=== PATIENT | female | born 1970 | race Caucasian/White ===

== ENCOUNTER 2023-04-06 19:35 | Observation (INO) ==
[2023-04-06] MEDS ORDERED: SODIUM CHLORIDE 0.9% 500 ML IV ONE ×2 (19:58→21:21)
--- NOTE | 2023-04-06 20:00 | Emergency Department Note ---
Impression & Plan Hypertensive emergency, Stroke-like symptoms, Hx of multiple sclerosis ED Provider Note NAME: TED VELASQUEZ AGE: 52 SEX: F ARRIVES VIA: Walk-In INFORMANT: Patient ED PROVIDER(S): Ty Servin MD CHIEF COMPLAINT: Headache, dizziness, elevated blood pressure. History of CVA. PLAN: Disposition: Admit MEDICAL DECISION MAKING: The patient is a pleasant 52-year-old woman with a past medical history of multiple sclerosis and stroke 2 years ago per her report who presents to the emergency department via walk-in accompanied by her for evaluation of ongoing headache that began last night with persistence into this morning with development associated dizziness and imbalance that continued into today with associated elevated blood pressure. The patient denies taking any medications on regular basis including medication for blood pressure or stroke prevention. She reports she was initially diagnosed with a stroke at [facility] and had been on medications for a month or so afterwards but reports she lost insurance and never followed up again. She otherwise reports recent pattern of acute episodes of hot flashes and palpitations over the past several months but had never developed severe headache with them as she has now. She reports that she noticed some slight leg weakness when she was walking into the emergency department today but acknowledges this has happened in the past and had attributed to her multiple sclerosis. Upon presenting to triage she reported lightheadedness and headache associate with her blood pressure being elevated. Upon arriving to her room RN evaluation suspected possible extremity drift. On my evaluation the patient is uncomfortable no acute distress, blood pressure 220/120s and vital signs otherwise stable. She appears clinically dry. She exhibits left lower extremity weakness with slight drift though some inconsistent on examination as there is normal strength against resistance. Giv en the patient's imbalance and dizziness associated with her headache began this morning indicated as she is outside the window however stroke alert was activated for the possibility of large vessel occlusion. I did discuss the case with [facility] telestroke neurology, Dr. Miles, who did evaluate the patient via telestroke terminal. Subsequent, the patient's CT head and CTA of the head neck were negative for acute abnormalities. Appreciate consultation and recommendations. Agrees that TNK not indicated at this time. Further no large vessel occlusion. Agrees that symptoms likely related to hypertensive emergency. Progress is considered however no evidence of this on imaging at this time. Recommends admission for further treatment of blood pressure and MRI imaging to further characterize symptoms. Recommends initiation of daily aspirin and high-dose statin such as 40 mg of atorvastatin. The patient is from [facility] and is visiting [place] with her partner. Thus, plan will be to follow-up with her she stroke clinic upon discharge. EKG without overt acute ischemia. CXR negative for acute cardiopulmonary process. WBC, hemoglobin and platelets within normal limits. Chemistry without metabolic acidosis. Electrolytes and LFTs without significant abnormality. High- sensitivity troponin 6.1, within normal limits. TSH within normal limits. UA without convincing evidence of infection as epithelial cells are present and negative nitrates. Treatment was initiated with IV fluid hydration as well as IV labetalol for blood pressure control. Case was discussed with Dr. Merritt, [place] hospitalist who will evaluate the patient for admission. Triage Nursing notes reviewed and agree them. Prior/outside medical records reviewed Vital Signs: reviewed Differential diagnosis: Infection, dehydration, metabolic abnormality, hypo/hyperglycemia, electrolyte disturbance, anemia, hypoxia, cardiac sources, intracerebral event, toxicologic, neurologic, as well as other pathologies. ER treatment provided: See below. Diagnostics interpreted by me: ECG: Normal sinus rhythm, 90 bpm, no ectopy, no overt ST elevation or depression, QTc 459, QRS 94 Cardiac Monitoring: An order for continuous cardiac monitoring was placed and demonstrated Normal sinus rhythm, 90 bpm, no ectopy. Laboratory studies: See below Imaging studies: See below Consultation(s): Dr. Miles,[facility] telestroke neurology. Dr. Merritt, [facility] hospitalist. HPI: The patient is a pleasant 52-year-old woman with a past medical history of multiple sclerosis and stroke 2 years ago per her report who presents to the emergency department via walk-in accompanied by her for evaluation of ongoing headache that began last night with persistence into this morning with development associated dizziness and imbalance that continued into today with associated elevated blood pressure. The patient denies taking any medications on regular basis including medication for blood pressure or stroke prevention. She reports she was initially diagnosed with a stroke at [facility] and had been on medications for a month or so afterwards but reports she lost insurance and never followed up again. She otherwise reports recent pattern of acute episodes of hot flashes and palpitations over the past several months but had never developed severe headache with them as she has now. She reports that she noticed some slight leg weakness when she was walking into the emergency department today but acknowledges this has happened in the past and had attributed to her multiple sclerosis. Upon presenting to triage she reported lightheadedness and headache associate with her blood pressure being elevated. Upon arriving to her room RN evaluation suspected possible extremity drift. ROS: See above HPI for pertinent positives & negatives. A total of 10 systems reviewed and were otherwise negative. VITALS:See Below PHYSICAL EXAMINATION: GENERAL: Awake, alert, anxious/uncomfortable-appearing, in no distress HENT: Normocephalic, atraumatic. Oropharynx with dry mucous membranes and otherwise unremarkable. EYES: Normal conjunctiva. Sclera non-icteric. NECK: Supple. No nuchal rigidity. FROM. No JVD. RESPIRATORY: Clear to auscultation. CARDIAC: Regular rate, normal rhythm. Extremities warm and well perfused. Pulses equal. ABDOMEN: Soft, non-distended. No tenderness to palpation. No rebound or guarding. No masses. RECTAL: Deferred. MUSCULOSKELETAL: Chest examination reveals no tenderness. The back is symmetrical on inspection without obvious abnormality. There is no CVA tenderness to palpation. No joint edema. LOWER EXTREMITIES: Calves are equal size bilaterally and non-tender. No edema. No discoloration. NEURO: Exhibits left lower extremity weakness with slight drift though some inconsistent on examination as there is normal strength against resistance. Equivocal intermittent aphasia though appears distractible. BUE 5/5 strength. RLE 5/5 strength. Intact finger to nose. SKIN: No rash or jaundice noted. ED COURSE: Critical Care: I have personally spent greater than 35 minutes of critical care time in the direct management of this patient. This includes bedside care, interpretation of diagnostic studies, and testing, discussion with consultants, patient, and family members, and other required patient management activities. This 35 minutes is in excess of all separately billable procedures. Ty Servin MD Past Med/Surg History Medical History CVA (cerebral vascular accident) Hx of multiple sclerosis Social History Smoking Status: Never smoker Hx Alcohol Use: Yes Alcohol type: beer and wine Hx Substance Use: No Preferred Language: Telugu Communication Ability: Effective Insurance Account Executive Required: No Beliefs That Will Affect Care: None Current Living Situation: Spouse Other Information That Helps Us Care for You: No Feels Safe at Home: Yes Safety Concerns: Feels Safe At This Time Allergies Allergies Allergy/AdvReac Type Severity Reaction Status Date / Time ciprofloxacin Allergy Intermediate Rash Verified 04/06/23 22:15 Home Meds Home Medications Medication Instructions Recorded Confirmed acetaminophen 500 mg tablet 1,000 mg PO DIRECTED PRN Pain 04/06/23 04/06/23 (Tylenol Extra Strength) ibuprofen 200 mg tablet 800 mg PO DIRECTED PRN Pain 04/06/23 04/06/23 Results & Data (ED) Vital Signs Vital Signs - 24 hr 04/06/23 19:35 04/06/23 19:59 04/06/23 20:37 Temperature 36.9 C Temperature Source Temporal Artery Scan Pulse Rate 89 87 91 H Pulse Rate [Apical] Respiratory Rate 16 18 19 Respiratory Effort / Characteristics Non-Labored Spontaneous Respiratory Depth Normal Respiratory Pattern Blood Pressure 226/126 H 196/117 H Blood Pressure [Left Arm] Blood Pressure Mean 159 143 Blood Pressure Mean [Left Arm] Pulse Oximetry 96 97 97 Oxygen Delivery Method Room Air Room Air Room Air Sepsis Recent Fever Within 48 Hours No Sepsis New/Unexplained Change in Mental Status N/A Sepsis Action Taken by Nursing No Action Required 04/06/23 20:45 04/06/23 21:01 04/06/23 21:16 Temperature Temperature Source Pulse Rate 96 H 100 H 92 H Pulse Rate [Apical] Respiratory Rate 22 20 23 Respiratory Effort / Characteristics Respiratory Depth Respiratory Pattern Blood Pressure 191/121 H 216/140 H 193/130 H Blood Pressure [Left Arm] Blood Pressure Mean 144 165 151 Blood Pressure Mean [Left Arm] Pulse Oximetry 97 96 95 Oxygen Delivery Method Room Air Room Air Room Air Sepsis Recent Fever Within 48 Hours Sepsis New/Unexplained Change in Mental Status Sepsis Action Taken by Nursing 04/06/23 21:30 04/06/23 21:45 04/06/23 22:00 Temperature Temperature Source Pulse Rate 89 77 75 Pulse Rate [Apical] Respiratory Rate 13 15 15 Respiratory Effort / Characteristics Respiratory Depth Respiratory Pattern Blood Pressure 169/133 H 148/92 H 148/102 H Blood Pressure [Left Arm] Blood Pressure Mean 145 110 117 Blood Pressure Mean [Left Arm] Pulse Oximetry 95 93 96 Oxygen Delivery Method Room Air Room Air Room Air Sepsis Recent Fever Within 48 Hours Sepsis New/Unexplained Change in Mental Status Sepsis Action Taken by Nursing 04/06/23 20:00 04/06/23 22:22 04/06/23 20:00 Temperature Temperature Source Pulse Rate 85 75 Pulse Rate [Apical] 86 Respiratory Rate 18 Respiratory Effort / Characteristics Non-Labored Respiratory Depth Normal Respiratory Pattern Regular Blood Pressure 148/102 H Blood Pressure [Left Arm] 235/142 H Blood Pressure Mean Blood Pressure Mean [Left Arm] 173 Pulse Oximetry 97 Oxygen Delivery Method Room Air Sepsis Recent Fever Within 48 Hours Sepsis New/Unexplained Change in Mental Status Sepsis Action Taken by Nursing 04/06/23 22:16 Temperature Temperature Source Pulse Rate 74 Pulse Rate [Apical] Respiratory Rate 16 Respiratory Effort / Characteristics Respiratory Depth Respiratory Pattern Blood Pressure 147/95 H Blood Pressure [Left Arm] Blood Pressure Mean 112 Blood Pressure Mean [Left Arm] Pulse Oximetry 96 Oxygen Delivery Method Room Air Sepsis Recent Fever Within 48 Hours Sepsis New/Unexplained Change in Mental Status Sepsis Action Taken by Nursing Laboratory Data Attestation: I reviewed the patient's lab results. 04/06/23 19:45 04/06/23 19:45 Lab Results 04/06/23 04/06/23 04/06/23 Range/Units 19:45 19:45 19:45 WBC 6.73 (4.8-10.8) K/ul RBC 4.09 L (4.20-5.40) M/uL Hgb 12.3 (12.0-16.0) g/dl POC Hgb (12.0-16.0) g/dl Hct 35.6 L (37.0-47.0) % POC Hct (37-47) % MCV 87.0 (80.0-100.0) fL MCH 30.1 (25.0-34.0) pg MCHC 34.6 (32.0-36.0) g/dL RDW Std Deviation 44.4 (36.4-46.3) fL RDW Coeff of Claudia 14.0 (11.5-14.5) % Plt Count 329 (130-400) K/uL MPV 9.5 (9.4-12.4) fL PT 10.3 (9.0-12.0) Seconds INR 0.9 (0.9-1.1) APTT 26.5 (21.0-31.0) Seconds PTT Ratio 0.9 POC Sodium (135-144) mmol/L Sodium 137 (136-145) mmol/L POC Potassium (3.3-5.0) mmol/L Potassium 3.8 (3.5-5.1) mmol/L POC Chloride (101-112) mmol/L Chloride 104 (98-107) mmol/L Carbon Dioxide 25 (21-32) mmol/L POC Total CO2 (24-31) mmol/L Anion Gap 8 (3-11) POC Anion Gap (16-25) mmol/L POC BUN (7-18) mg/dl BUN 18 (6-23) mg/dl Creatinine 0.90 (0.6-1.2) mg/dl POC Creatinine (0.6-1.3) mg/dl Est Cr Clr Drug Dosing 75.8 ml/min Est GFR ( Amer) 84.6 ml/min Est GFR (Non-Af Amer) 73.0 ml/min BUN/Creatinine Ratio 20.0 (10-20) Glucose 123 H (70-99(Fasting)) mg/dl POC Glucose (other) (70-99) mg/dl Calcium 9.6 (8.6-10.3) mg/dl POC Ioniz Calcium Nidia (1.12-1.32) mmol/l Phosphorus 5.1 H (2.5-4.9) mg/dl Magnesium 1.8 (1.7-2.4) mg/dl Total Bilirubin 0.5 (0.2-1.0) mg/dl AST 12 L (13-39) U/L ALT 14 (7-52) U/L Alkaline Phosphatase 99 (34-104) U/L Troponin I High Sens 6.1 (0-14) pg/ml Total Protein 7.0 (6.0-8.3) gm/dl Albumin 4.5 (3.4-5.0) gm/dl Globulin 2.5 (2.5-4.0) gm/dl Albumin/Globulin Ratio 1.8 (0.9-2) TSH (0.300-4.500) uIu/ml Urine Color Urine Appearance (Clear) Urine pH (4.5-7.5) Ur Specific Girard (1.000-1.030) Urine Protein (Negative) Urine Glucose (UA) (Negative) Urine Ketones (Negative) Urine Blood (Negative) Urine Nitrite (Negative) Urine Bilirubin (Negative) Urine Urobilinogen (Negative) Ur Leukocyte Esterase (Negative) Urine WBC (Auto) (0-5) /hpf Urine RBC (Auto) (0-4) /hpf U Hyaline Cast (Auto) (0-5) /lpf U Epithel Cells (Auto) (0-5) /lpf Urine Bacteria (Auto) (Negative) 04/06/23 04/06/23 04/06/23 Range/Units 19:50 19:54 20:30 WBC (4.8-10.8) K/ul RBC (4.20-5.40) M/uL Hgb (12.0-16.0) g/dl POC Hgb 12.6 (12.0-16.0) g/dl Hct (37.0-47.0) % POC Hct 37 (37-47) % MCV (80.0-100.0) fL MCH (25.0-34.0) pg MCHC (32.0-36.0) g/dL RDW Std Deviation (36.4-46.3) fL RDW Coeff of Claudia (11.5-14.5) % Plt Count (130-400) K/uL MPV (9.4-12.4) fL PT (9.0-12.0) Seconds INR (0.9-1.1) APTT (21.0-31.0) Seconds PTT Ratio POC Sodium 139 (135-144) mmol/L Sodium (136-145) mmol/L POC Potassium 3.8 (3.3-5.0) mmol/L Potassium (3.5-5.1) mmol/L POC Chloride 103 (101-112) mmol/L Chloride (98-107) mmol/L Carbon Dioxide (21-32) mmol/L POC Total CO2 26 (24-31) mmol/L Anion Gap (3-11) POC Anion Gap 15.0 L (16-25) mmol/L POC BUN 17 (7-18) mg/dl BUN (6-23) mg/dl Creatinine (0.6-1.2) mg/dl POC Creatinine 1.0 (0.6-1.3) mg/dl Est Cr Clr Drug Dosing ml/min Est GFR ( Amer) ml/min Est GFR (Non-Af Amer) ml/min BUN/Creatinine Ratio (10-20) Glucose (70-99(Fasting)) mg/dl POC Glucose (other) 125 H (70-99) mg/dl Calcium (8.6-10.3) mg/dl POC Ioniz Calcium Nidia 1.23 (1.12-1.32) mmol/l Phosphorus (2.5-4.9) mg/dl Magnesium (1.7-2.4) mg/dl Total Bilirubin (0.2-1.0) mg/dl AST (13-39) U/L ALT (7-52) U/L Alkaline Phosphatase (34-104) U/L Troponin I High Sens (0-14) pg/ml Total Protein (6.0-8.3) gm/dl Albumin (3.4-5.0) gm/dl Globulin (2.5-4.0) gm/dl Albumin/Globulin Ratio (0.9-2) TSH 2.954 (0.300-4.500) uIu/ml Urine Color Yellow Urine Appearance Clear (Clear) Urine pH 6.0 (4.5-7.5) Ur Specific Girard 1.009 (1.000-1.030) Urine Protein Negative (Negative) Urine Glucose (UA) Negative (Negative) Urine Ketones Negative (Negative) Urine Blood 1+ H (Negative) Urine Nitrite Negative (Negative) Urine Bilirubin Negative (Negative) Urine Urobilinogen Negative (Negative) Ur Leukocyte Esterase 2+ H (Negative) Urine WBC (Auto) 10-30 H (0-5) /hpf Urine RBC (Auto) 0-4 (0-4) /hpf U Hyaline Cast (Auto) 1-5 (0-5) /lpf U Epithel Cells (Auto) >30 H (0-5) /lpf Urine Bacteria (Auto) 1+ H (Negative) Administered Medications Potassium Chloride/Sodium Chloride (Normal Saline W/20 Meq Kcl) 20 meq in 1,000 mls @ 50 mls/hr IV .Q20H ONE; Protocol Stop: 04/07/23 18:13 Last Admin: 04/06/23 22:48 Dose: 50 mls/hr Documented By: HERIBERTO Lorazepam (Lorazepam 0.5 Mg Tab) 0.5 mg PO TID PRN PRN Reason: Anxiety Stop: 05/06/23 22:36 Last Admin: 04/07/23 00:05 Dose: 0.5 mg Documented By: ALEKSANDER Morphine Sulfate (Morphine Sulfate 4 Mg/Ml 1 Ml Carp\Vial) 4 mg IV Q4H PRN PRN Reason: Pain Stop: 04/20/23 22:36 Last Admin: 04/07/23 01:26 Dose: 4 mg Documented By: ALEKSANDER Discontinued Medications Amoxicillin/Clavulanate Potassium (Amoxicillin/Clavulanate 875 Mg Tab) 1 tab PO NOW ONE; Protocol Stop: 04/06/23 22:14 Last Admin: 04/06/23 22:48 Dose: 1 tab Documented By: HERIBERTO Aspirin (Aspirin 81 Mg Ectab) 81 mg PO NOW STA Stop: 04/06/23 22:39 Last Admin: 04/06/23 22:48 Dose: 81 mg Documented By: HERIBERTO Atorvastatin Calcium (Atorvastatin 40 Mg Tab) 40 mg PO NOW STA Stop: 04/06/23 22:39 Last Admin: 04/06/23 23:25 Dose: 40 mg Documented By: HERIBERTO Sodium Chloride (Nss) 500 mls @ 999 mls/hr IV .Q31M ONE Stop: 04/06/23 20:28 Last Infusion: 04/06/23 21:16 Dose: 0 mls/hr Documented By: Admin: 04/06/23 20:05 Dose: 999 mls/hr Documented By: HERIBERTO Sodium Chloride (Nss) 500 mls @ 999 mls/hr IV .Q31M ONE Stop: 04/06/23 21:51 Last Infusion: 04/06/23 22:22 Dose: 0 mls/hr Documented By: Admin: 04/06/23 21:30 Dose: 999 mls/hr Documented By: HERIBERTO Acetaminophen (Ofirmev) 1,000 mg in 100 mls @ 400 mls/hr IV NOW STA Stop: 04/06/23 21:35 Last Infusion: 04/06/23 22:22 Dose: 0 mls/hr Documented By: Admin: 04/06/23 21:29 Dose: 400 mls/hr Documented By: HERIBERTO Nicardipine HCl 25 mg/ Sodium (Chloride) 250 mls @ 50 mls/hr IV .Q5H BRENDA; Protocol Stop: 05/06/23 21:29 Last Admin: 04/07/23 00:10 Dose: Not Given Documented By: ALEKSANDER Magnesium Sulfate/Dextrose (Magnesium Sulfate / D5w) 1 gm in 100 mls @ 50 mls/hr IV Q2H BRENDA Stop: 04/07/23 01:44 Last Admin: 04/07/23 01:15 Dose: 50 mls/hr Documented By: Infusion: 04/07/23 00:48 Dose: 50 mls/hr Documented By: Admin: 04/06/23 22:48 Dose: 50 mls/hr Documented By: HERIBERTO Ioversol (Ioversol 350 Mg 125ml Prefilled Syringe) 114 ml IV ONCE ONE Stop: 04/06/23 20:29 Last Admin: 04/06/23 20:28 Dose: 114 ml Documented By: LIZ Labetalol HCl (Labetalol Hcl Iv 5 Mg/Ml 20ml) 20 mg IV NOW STA Stop: 04/06/23 21:22 Last Admin: 04/06/23 21:30 Dose: 20 mg Documented By: HERIBERTO Co-signed By: JOSE F Lisinopril (Lisinopril 5 Mg Tab) 5 mg PO NOW ONE Stop: 04/06/23 21:36 Last Admin: 04/06/23 22:48 Dose: 5 mg Documented By: HERIBERTO Miscellaneous (Stat Iv Infusion Titration Per Protocol) 1 each N/A NOW STA; Protocol Stop: 04/06/23 21:28 Last Admin: 04/07/23 00:12 Dose: Not Given Documented By: ALEKSANDER Tramadol HCl (Tramadol Hcl 50 Mg Tablet) 25 - 50 mg PO Q4H PRN PRN Reason: Pain Stop: 05/07/23 00:20 Last Admin: 04/07/23 00:32 Dose: 25 mg Documented By: ALEKSANDER Imaging Data Radiologist's Impression: Chest X-Ray 04/06/23 19:40 SINGLE VIEW CHEST CLINICAL HISTORY: Strokelike symptoms. FINDINGS: An AP, portable, upright chest radiograph is obtained. No prior studies are available for comparison at the time of dictation. The cardiomediastinal silhouette is unremarkable. There is mild bibasilar a telectasis. The lungs and pleural spaces are otherwise clear. No pneumothorax is seen. The bony thorax is grossly intact. IMPRESSION: No active disease in the chest. ACT 112: Negative or not required by law. Electronically signed by: Bogdan Ellis M.D. 04/06/2023 10:[address] 04/06/23 19:40 CR Exam(s): CT HEAD Without Contrast EXAM: CT Head Without Intravenous Contrast CLINICAL HISTORY: Reason for exam: stroke symptoms, LLE weakness, HTN. TECHNIQUE: Axial computed tomography images of the head/brain without intravenous contrast. CTDI is 45.65 mGy and DLP is 677.75 mGy-cm. Automated exposure control was utilized for the study. A dose lowering technique was utilized adhering to the principles of ALARA. COMPARISON: None. FINDINGS: Brain: Scattered areas of decreased attenuation within the deep white matter suggestive of mild microangiopathic white matter disease. No hemorrhage. Ventricles: Unremarkable. No ventriculomegaly. Bones/joints: Unremarkable. No acute fracture. Soft tissues: Unremarkable. Sinuses: Unremarkable as visualized. No acute sinusitis. Mastoid air cells: Unremarkable as visualized. No mastoid effusion. IMPRESSION: Chronic changes as described. No acute intracranial hemorrhage or space-occupying lesion. Communications: Call Doctor Stroke Electronically signed by: Marquita Tabor MD 04/06/23 20:53 PM Head CTA 04/06/23 20:23 CR Exam(s): CTA HEAD With Contrast IV Amt: 114 ml optiray 350 EXAM: CT Angiography Head With Intravenous Contrast CLINICAL HISTORY: Reason for exam: stroke symptoms, LLE weakness, HTN. TECHNIQUE: Axial computed tomographic angiography images of the head with intravenous contrast. CTDI is 45.76 mGy and DLP is 677.48 mGy-cm. Automated exposure control was utilized for the study. A dose lowering technique was utilized adhering to the principles of ALARA. MIP reconstructed images were created and reviewed. CONTRAST: Patient received 114 ml optiray 350 of IV contrast COMPARISON: None. FINDINGS: Right internal carotid artery: No acute findings. Intracranial segment is patent with no significant stenosis. No aneurysm. Right anterior cerebral artery: Unremarkable. No occlusion or significant stenosis. No aneurysm. Right middle cerebral artery: Unremarkable. No occlusion or significant stenosis. No aneurysm. Right posterior cerebral artery: Unremarkable. No occlusion or significant stenosis. No aneurysm. Right vertebral artery: Unremarkable as visualized. Left internal carotid artery: No acute findings. Intracranial segment is patent with no significant stenosis. No aneurysm. Left anterior cerebral artery: Unremarkable. No occlusion or significant stenosis. No aneurysm. Left middle cerebral artery: Unremarkable. No occlusion or significant stenosis. No aneurysm. Left posterior cerebral artery: Unremarkable. No occlusion or significant stenosis. No aneurysm. Left vertebral artery: Unremarkable as visualized. Basilar artery: Unremarkable. No occlusion or significant stenosis. No aneurysm. IMPRESSION: Negative CT angiogram of the brain with no focal stenosis, occlusion or aneurysm involving the [place] of [place]. Communications: Call Doctor Stroke Electronically signed by: Marquita Tabor MD 04/06/23 21:16 PM Neck CTA 04/06/23 20:23 CR Exam(s): CTA NECK With Contrast IV Amt: 114 ml optiray 350 EXAM: CT Angiography Neck With Intravenous Contrast CLINICAL HISTORY: Reason for exam: stroke symptoms, LLE weakness, HTN. TECHNIQUE: Routine carotid CT angiography protocol was performed with intravenous contrast. NASCET criteria using the distal ICAs for comparison were used for evaluation of stenoses. CTDI is 11.81 mGy and DLP is 408.05 mGy-cm. Automated exposure control was utilized for the study. A dose lowering technique was utilized adhering to the principles of ALARA. MIP reconstructed images were created and reviewed. CONTRAST: Patient received 114 ml optiray 350 of IV contrast COMPARISON: None. FINDINGS: VASCULATURE: Right common carotid artery: Unremarkable. No occlusion or significant stenosis. No dissection. Right internal carotid artery: Unremarkable. Extracranial segment is patent with no occlusion or significant stenosis. No dissection. Right external carotid artery: Unremarkable. No occlusion. Right vertebral artery: Unremarkable. No occlusion or significant stenosis. No dissection. Left common carotid artery: Unremarkable. No occlusion or significant stenosis. No dissection. Left internal carotid artery: Unremarkable. Extracranial segment is patent with no occlusion or significant stenosis. No dissection. Left external carotid artery: Unremarkable. No occlusion. Left vertebral artery: Unremarkable. No occlusion or significant stenosis. No dissection. NECK: Bones/joints: Unremarkable. Soft tissues: Unremarkable. Lung apices: Clear. Other findings: Nonspecific degenerative disease of the spine. CAROTID STENOSIS REFERENCE USING NASCET CRITERIA: % ICA stenosis = (1 - narrowest ICA diameter/diameter of distal cervical ICA) x 100. Mild - <50% stenosis. Moderate - 50-69% stenosis. Severe - 70-94% stenosis. Near occlusion - 95-99% stenosis. Occluded - 100% stenosis. IMPRESSION: Negative CT angiogram of the neck with no focal stenosis, occlusion or dissection seen. Communications: Call Doctor Stroke Electronically signed by: Marquita Tabor MD 04/06/23 21:14 PM Abdomen/Pelvis CT 04/06/23 22:17 CT SCAN OF THE ABDOMEN AND PELVIS WITHOUT IV CONTRAST CLINICAL HISTORY: Low back pain. COMPARISON STUDY: No priors. TECHNIQUE: CT scan of the abdomen and pelvis is performed from the lung bases to the proximal femora. Images are reviewed in the axial, sagittal, and coronal planes. IV contrast was not administered for this examination. A dose lowering technique was utilized adhering to the principles of ALARA. CT DOSE: 1377.85 mGy.cm FINDINGS: Lung bases: The heart is enlarged and without pericardial effusion. The lung bases are clear noting bibasilar atelectasis. There is a small hiatal hernia. Liver: The unenhanced liver is normal in size, contour, and attenuation. There is no intrahepatic biliary ductal dilatation. Gallbladder: Unremarkable. Spleen: Normal in size and attenuation. Pancreas: Unremarkable. Adrenal glands: Unremarkable. Kidneys: The unenhanced kidneys are normal in size and without hydronephrosis. Excreted IV contrast fills the renal collecting systems and ureters. This degrades assessment for renal calculi. There is no evidence of urothelial lesion within the renal pelvis bilaterally or along the course of the ureters. There is no evidence of contour deforming renal mass lesion. Abdominal vasculature: The abdominal aorta is normal in course and caliber noting scattered foci of atherosclerotic calcification. Bowel: There is mild colonic diverticulosis without CT evidence of acute diverticulitis. No bowel obstruction is seen. Moderate fecal retention is noted throughout the colon. The appendix is well-visualized and normal. Peritoneum: There is no intraperitoneal free air or abdominal ascites. There is a fat-containing umbilical hernia. Lymphadenopathy: None. Pelvic viscera: The bladder is filled with excreted IV contrast and normal in appearance. The uterus and adnexa are normal in appearance Skeletal structures: There is mild lumbosacral spondylosis. No lytic or blastic lesions are seen. IMPRESSION: No acute infectious or inflammatory findings are identified in the abdomen or pelvis. See above. ACT 112: Negative or not required by law. Electronically signed by: Bogdan Ellis M.D. 04/06/2023 10:57 PM Discharge Plan Visit Data Chief Complaint: Hypertension Stated Complaint: HIGH BP, DIZZY ED Provider: Ty Servin Discharge Problem: Hypertensive emergency, Stroke-like symptoms, Hx of multiple sclerosis Patient Disposition: Admitted As Inpatient Discharge Instructions Interventions: ED Discharge Assessment Last Done: 04/06/23 23:36
[2023-04-06 20:03] LABS: iSTAT Hemoglobin 12.6 g/dl (12.0-16.0); iSTAT Ionized Calcium 1.23 mmol/l (1.12-1.32); iSTAT Potassium 3.8 mmol/L (3.3-5.0)
[2023-04-06 20:21] LABS: Hematocrit (blood only) 35.6 % (37.0-47.0); Hemoglobin 12.3 g/dl (12.0-16.0); Mean Corpuscular Hemoglobin 30.1 pg (25.0-34.0); Mean Corpuscular Hgb Conc 34.6 g/dL (32.0-36.0); Mean Platelet Volume 9.5 fL (9.4-12.4); Platelet Count 329 K/uL (130-400); RDW Standard Deviation 44.4 fL (36.4-46.3); Red Blood Count 4.09 M/uL (4.20-5.40); White Blood Count 6.73 K/ul (4.8-10.8)
[2023-04-06 20:26] LABS: Albumin Globulin Ratio 1.8 (0.9-2); Albumin Level 4.5 gm/dl (3.4-5.0); Bilirubin,Total 0.5 mg/dl (0.2-1.0); Calcium 9.6 mg/dl (8.6-10.3); Creatinine Clr Calc Pharmacy 75.8 ml/min; Est GFR (African American) 84.6 ml/min; Globulin 2.5 gm/dl (2.5-4.0); Magnesium 1.8 mg/dl (1.7-2.4); Potassium 3.8 mmol/L (3.5-5.1)
[2023-04-06] MEDS ORDERED: IOVERSOL 350 MG 125mL Prefilled Syringe IV ONE (20:28)
[2023-04-06 20:47] LABS: INR 0.9 (0.9-1.1); Partial Thromboplastin Ratio 0.9; Partial Thromboplastin Time 26.5 Seconds (21.0-31.0); Prothrombin Time 10.3 Seconds (9.0-12.0)
[2023-04-06 20:49] LABS: Phosphorus 5.1 mg/dl (2.5-4.9)
--- NOTE | 2023-04-06 20:54 | CT Scan Report ---
Exam(s): CT HEAD Without Contrast EXAM: CT Head Without Intravenous Contrast CLINICAL HISTORY: Reason for exam: stroke symptoms, LLE weakness, HTN. TECHNIQUE: Axial computed tomography images of the head/brain without intravenous contrast. CTDI is 45.65 mGy and DLP is 677.75 mGy-cm. Automated exposure control was utilized for the study. A dose lowering technique was utilized adhering to the principles of ALARA. COMPARISON: None. FINDINGS: Brain: Scattered areas of decreased attenuation within the deep white matter suggestive of mild microangiopathic white matter disease. No hemorrhage. Ventricles: Unremarkable. No ventriculomegaly. Bones/joints: Unremarkable. No acute fracture. Soft tissues: Unremarkable. Sinuses: Unremarkable as visualized. No acute sinusitis. Mastoid air cells: Unremarkable as visualized. No mastoid effusion. IMPRESSION: Chronic changes as described. No acute intracranial hemorrhage or space-occupying lesion. Communications: Call Doctor Stroke Electronically signed by: Marquita Tabor MD 04/06/23 20:53 PM
[2023-04-06 20:57] LABS: Troponin I High Sensitivity 6.1 pg/ml (0-14)
--- NOTE | 2023-04-06 21:15 | CT Scan Report ---
Exam(s): CTA NECK With Contrast IV Amt: 114 ml optiray 350 EXAM: CT Angiography Neck With Intravenous Contrast CLINICAL HISTORY: Reason for exam: stroke symptoms, LLE weakness, HTN. TECHNIQUE: Routine carotid CT angiography protocol was performed with intravenous contrast. NASCET criteria using the distal ICAs for comparison were used for evaluation of stenoses. CTDI is 11.81 mGy and DLP is 408.05 mGy-cm. Automated exposure control was utilized for the study. A dose lowering technique was utilized adhering to the principles of ALARA. MIP reconstructed images were created and reviewed. CONTRAST: Patient received 114 ml optiray 350 of IV contrast COMPARISON: None. FINDINGS: VASCULATURE: Right common carotid artery: Unremarkable. No occlusion or significant stenosis. No dissection. Right internal carotid artery: Unremarkable. Extracranial segment is patent with no occlusion or significant stenosis. No dissection. Right external carotid artery: Unremarkable. No occlusion. Right vertebral artery: Unremarkable. No occlusion or significant stenosis. No dissection. Left common carotid artery: Unremarkable. No occlusion or significant stenosis. No dissection. Left internal carotid artery: Unremarkable. Extracranial segment is patent with no occlusion or significant stenosis. No dissection. Left external carotid artery: Unremarkable. No occlusion. Left vertebral artery: Unremarkable. No occlusion or significant stenosis. No dissection. NECK: Bones/joints: Unremarkable. Soft tissues: Unremarkable. Lung apices: Clear. Other findings: Nonspecific degenerative disease of the spine. CAROTID STENOSIS REFERENCE USING NASCET CRITERIA: % ICA stenosis = (1 - narrowest ICA diameter/diameter of distal cervical ICA) x 100. Mild - <50% stenosis. Moderate - 50-69% stenosis. Severe - 70-94% stenosis. Near occlusion - 95-99% stenosis. Occluded - 100% stenosis. IMPRESSION: Negative CT angiogram of the neck with no focal stenosis, occlusion or dissection seen. Communications: Call Doctor Stroke Electronically signed by: Marquita Tabor MD 04/06/23 21:14 PM
--- NOTE | 2023-04-06 21:17 | CT Scan Report ---
Exam(s): CTA HEAD With Contrast IV Amt: 114 ml optiray 350 EXAM: CT Angiography Head With Intravenous Contrast CLINICAL HISTORY: Reason for exam: stroke symptoms, LLE weakness, HTN. TECHNIQUE: Axial computed tomographic angiography images of the head with intravenous contrast. CTDI is 45.76 mGy and DLP is 677.48 mGy-cm. Automated exposure control was utilized for the study. A dose lowering technique was utilized adhering to the principles of ALARA. MIP reconstructed images were created and reviewed. CONTRAST: Patient received 114 ml optiray 350 of IV contrast COMPARISON: None. FINDINGS: Right internal carotid artery: No acute findings. Intracranial segment is patent with no significant stenosis. No aneurysm. Right anterior cerebral artery: Unremarkable. No occlusion or significant stenosis. No aneurysm. Right middle cerebral artery: Unremarkable. No occlusion or significant stenosis. No aneurysm. Right posterior cerebral artery: Unremarkable. No occlusion or significant stenosis. No aneurysm. Right vertebral artery: Unremarkable as visualized. Left internal carotid artery: No acute findings. Intracranial segment is patent with no significant stenosis. No aneurysm. Left anterior cerebral artery: Unremarkable. No occlusion or significant stenosis. No aneurysm. Left middle cerebral artery: Unremarkable. No occlusion or significant stenosis. No aneurysm. Left posterior cerebral artery: Unremarkable. No occlusion or significant stenosis. No aneurysm. Left vertebral artery: Unremarkable as visualized. Basilar artery: Unremarkable. No occlusion or significant stenosis. No aneurysm. IMPRESSION: Negative CT angiogram of the brain with no focal stenosis, occlusion or aneurysm involving the [place] of [place]. Communications: Call Doctor Stroke Electronically signed by: Marquita aTbor MD 04/06/23 21:16 PM
[2023-04-06] MEDS ORDERED: ACETAMINOPHEN 1,000 MG/100 ML VIAL IV STA (21:21)
[2023-04-06] MEDS ORDERED: LABETALOL HCL IV 5 MG/ML 20ML IV STA (21:21)
[2023-04-06] MEDS ORDERED: STAT IV Infusion **Titration per Protocol STA (21:27)
[2023-04-06] MEDS ORDERED: niCARdipine 25 MG in SODIUM CHLORIDE 0.9% 240 ML IV SCH (21:30)
[2023-04-06] MEDS ORDERED: lisinopril 5 MG TAB PO ONE (21:35)
[2023-04-06 21:57] LABS: Appearance Urine Clear (Clear); Bacteria Urine Automated 1+ (Negative); Bilirubin Urine Negative (Negative); Blood Urine 1+ (Negative); Color Urine Yellow; Epithelial Cell Urine Auto >30 /lpf (0-5); Glucose Urine UA Negative (Negative); Ketones Urine Negative (Negative); Leukocyte Esterase Urine 2+ (Negative); Nitrite Urine Negative (Negative); Protein Urine Negative (Negative); RBC Urine Automated 0-4 /hpf (0-4); Specific Gravity Urine 1.009 (1.000-1.030); Urobilinogen Urine Negative (Negative)
[2023-04-06] MEDS ORDERED: AMOXICILLIN/CLAVULANATE 875 MG TAB PO ONE (22:13)
[2023-04-06] MEDS ORDERED: NSS + 20MEQ KCL 20 MEQ/1,000 ML BAG IV ONE (22:14)
--- NOTE | 2023-04-06 22:17 | History & Physical Report ---
Date of Service April 06, 2023 Assessment & Plan (1) Hypertensive emergency: Plan: Precipitated by odontogenic infection and complicated UTI, no sepsis for now OTC NSAID intake hx medical noncompliance. Recurrent TIA secondary to uncontrolled blood pressure History of multiple sclerosis as per records LLE numbness currently resolved. hyperlipidemia, not on statin medications Left wrist pain possible neuropathy rule out bony pathology Hyperglycemia rule out DM PCU Careful lowering of blood pressure. Initiate prior lisinopril Rx Aspirin and statin Rx for possible TIA as per [facility] neurologist recommendation. MRI, TTE for additional stroke work-up Neurology consult Re: Recurrent TIA Analgesia, patient counseled regarding adverse effects of NSAIDs on blood pressure. Augmentin for odontogenic infection and complicated UTI. Dental surgery consult if symptoms unimproved in a.m. Plain x-ray of the left wrist May benefit from orthopedics consultation. Check hemoglobin A1c DVT prophylaxis with Lovenox subcu Full code Text document was generated using [employer] voice recognition software. It may contain grammatical or spelling errors. Kindly contact undersigned for clarification of any documentation item in question. History of Present Illness Chief Complaint: Headache, left lower extremity numbness Primary Care Provider: NO PCP History obtained from patient, family, and records. Medical history significant for hypertension, hyperlipidemia, multiple sclerosis, medication noncompliance. Patient confined at [facility] in [place], [place] about 3 years ago for high blood pressure and TIA symptoms. Patient discharged on aspirin and lisinopril home medications. Patient took medications for about a month until she ran out. Unable to see family doctor or get prescriptions due to insurance issues. Few days ago, patient noted toothache on the right lower jaw. No fever, no chills. Unable to see dentist. Patient taking OTC NSAIDs at home for pain. Increased urinary frequency since yesterday with some back pain. No hematuria. She noticed a bad headache when she woke up early this morning to urinate. Patient woke up worsening right-sided headache. Dizziness described as lightheadedness. No chest pain, no SOB. Transient left lower extremity numbness. Patient also complaining of shooting pain on the left wrist for few months now without recollection of recent trauma. SBP noted to be 200s at home which is higher than usual 160s. Stroke alert called upon arrival at the ER. SBP 220-230s at the ER. IV labetalol administered at the ER. 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 Allergies Allergy/AdvReac Type Severity Reaction Status Date / Time ciprofloxacin Allergy Intermediate Rash Verified 04/06/23 22:15 Home Medications Medication Instructions Recorded Confirmed Type acetaminophen 500 mg tablet 1,000 mg PO DIRECTED PRN Pain 04/06/23 04/06/23 History (Tylenol Extra Strength) ibuprofen 200 mg tablet 800 mg PO DIRECTED PRN Pain 04/06/23 04/06/23 History Past Med/Surg History Medical History CVA (cerebral vascular accident) Hx of multiple sclerosis Social History Smoking Status: Never smoker Hx Alcohol Use: Yes Alcohol type: beer and wine Hx Substance Use: No Preferred Language: Sinhala Communication Ability: Effective 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: No Beliefs That Will Affect Care: None Current Living Situation: Spouse Other Information That Helps Us Care for You: No Feels Safe at Home: Yes Safety Concerns: Feels Safe At This Time Review of Systems Review of Systems: As per HPI, all other systems reviewed and negative Physical Exam Physical Exam: GENERAL: Slightly uncomfortable, slightly anxious, obese, no respiratory distress SKIN: Normal color, warm HEENT: [place] palpebral conjunctivae, no ptosis, dry buccal mucosa, carious teeth, right lower jaw, negative trismus NECK : Supple, right jaw tenderness CHEST : CTA, no tenderness HEART : RRR, no obvious murmurs ABDOMEN: Some distention, nontender EXTREMITIES : Minimal LE swelling, no LE tenderness, no other conspicuous deformities noted NEUROLOGIC : Coherent, no facial asymmetry, no other gross focality Results & Data Results & Data Vital Signs (Past 12 Hours) Vital Signs Temp Pulse Resp BP Pulse Ox O2 Del Method 04/06/23 20:00 85 04/06/23 22:00 75 15 148/102 H 96 Room Air 04/06/23 21:45 77 15 148/92 H 93 Room Air 04/06/23 21:30 89 13 169/133 H 95 Room Air 04/06/23 21:16 92 H 23 193/130 H 95 Room Air 04/06/23 21:01 100 H 20 216/140 H 96 Room Air 04/06/23 20:45 96 H 22 191/121 H 97 Room Air 04/06/23 20:37 91 H 19 196/117 H 97 Room Air 04/06/23 19:59 87 18 97 Room Air 04/06/23 19:35 36.9 C 89 16 226/126 H 96 Room Air Laboratory Results Laboratory Results WBC 6.73 K/ul (4.8-10.8) 04/06/23 19:45 RBC 4.09 M/uL (4.20-5.40) L 04/06/23 19:45 Hgb 12.3 g/dl (12.0-16.0) 04/06/23 19:45 POC Hgb 12.6 g/dl (12.0-16.0) 04/06/23 19:50 Hct 35.6 % (37.0-47.0) L 04/06/23 19:45 POC Hct 37 % (37-47) 04/06/23 19:50 MCV 87.0 fL (80.0-100.0) 04/06/23 19:45 MCH 30.1 pg (25.0-34.0) 04/06/23 19:45 MCHC 34.6 g/dL (32.0-36.0) 04/06/23 19:45 RDW Std Deviation 44.4 fL (36.4-46.3) 04/06/23 19:45 RDW Coeff of Claudia 14.0 % (11.5-14.5) 04/06/23 19:45 Plt Count 329 K/uL (130-400) 04/06/23 19:45 MPV 9.5 fL (9.4-12.4) 04/06/23 19:45 PT 10.3 Seconds (9.0-12.0) 04/06/23 19:45 INR 0.9 (0.9-1.1) 04/06/23 19:45 APTT 26.5 Seconds (21.0-31.0) 04/06/23 19:45 PTT Ratio 0.9 04/06/23 19:45 POC Sodium 139 mmol/L (135-144) 04/06/23 19:50 Sodium 137 mmol/L (136-145) 04/06/23 19:45 POC Potassium 3.8 mmol/L (3.3-5.0) 04/06/23 19:50 Potassium 3.8 mmol/L (3.5-5.1) 04/06/23 19:45 POC Chloride 103 mmol/L (101-112) 04/06/23 19:50 Chloride 104 mmol/L (98-107) 04/06/23 19:45 Carbon Dioxide 25 mmol/L (21-32) 04/06/23 19:45 POC Total CO2 26 mmol/L (24-31) 04/06/23 19:50 Anion Gap 8 (3-11) 04/06/23 19:45 POC Anion Gap 15.0 mmol/L (16-25) L 04/06/23 19:50 POC BUN 17 mg/dl (7-18) 04/06/23 19:50 BUN 18 mg/dl (6-23) 04/06/23 19:45 Creatinine 0.90 mg/dl (0.6-1.2) 04/06/23 19:45 POC Creatinine 1.0 mg/dl (0.6-1.3) 04/06/23 19:50 Est Cr Clr Drug Dosing 75.8 ml/min 04/06/23 19:45 Est GFR ( Amer) 84.6 ml/min 04/06/23 19:45 Est GFR (Non-Af Amer) 73.0 ml/min 04/06/23 19:45 BUN/Creatinine Ratio 20.0 (10-20) 04/06/23 19:45 Glucose 123 mg/dl (70-99(Fasting)) H 04/06/23 19:45 POC Glucose (other) 125 mg/dl (70-99) H 04/06/23 19:50 Calcium 9.6 mg/dl (8.6-10.3) 04/06/23 19:45 POC Ioniz Calcium Nidia 1.23 mmol/l (1.12-1.32) 04/06/23 19:50 Phosphorus 5.1 mg/dl (2.5-4.9) H 04/06/23 19:45 Magnesium 1.8 mg/dl (1.7-2.4) 04/06/23 19:45 Total Bilirubin 0.5 mg/dl (0.2-1.0) 04/06/23 19:45 AST 12 U/L (13-39) L 04/06/23 19:45 ALT 14 U/L (7-52) 04/06/23 19:45 Alkaline Phosphatase 99 U/L (34-104) 04/06/23 19:45 Troponin I High Sens 6.1 pg/ml (0-14) 04/06/23 19:45 Total Protein 7.0 gm/dl (6.0-8.3) 04/06/23 19:45 Albumin 4.5 gm/dl (3.4-5.0) 04/06/23 19:45 Globulin 2.5 gm/dl (2.5-4.0) 04/06/23 19:45 Albumin/Globulin Ratio 1.8 (0.9-2) 04/06/23 19:45 TSH 2.954 uIu/ml (0.300-4.500) 04/06/23 19:54 Urine Color Yellow 04/06/23 20:30 Urine Appearance Clear (Clear) 04/06/23 20:30 Urine pH 6.0 (4.5-7.5) 04/06/23 20:30 Ur Specific [place] 1.009 (1.000-1.030) 04/06/23 20:30 Urine Protein Negative (Negative) 04/06/23 20:30 Urine Glucose (UA) Negative (Negative) 04/06/23 20:30 Urine Ketones Negative (Negative) 04/06/23 20:30 Urine Blood 1+ (Negative) H 04/06/23 20:30 Urine Nitrite Negative (Negative) 04/06/23 20:30 Urine Bilirubin Negative (Negative) 04/06/23 20:30 Urine Urobilinogen Negative (Negative) 04/06/23 20:30 Ur Leukocyte Esterase 2+ (Negative) H 04/06/23 20:30 Urine WBC (Auto) 10-30 /hpf (0-5) H 04/06/23 20:30 Urine RBC (Auto) 0-4 /hpf (0-4) 04/06/23 20:30 U Hyaline Cast (Auto) 1-5 /lpf (0-5) 04/06/23 20:30 U Epithel Cells (Auto) >30 /lpf (0-5) H 04/06/23 20:30 Urine Bacteria (Auto) 1+ (Negative) H 04/06/23 20:[address] 04/06/23 19:40 CR Exam(s): CT HEAD Without Contrast EXAM: CT Head Without Intravenous Contrast CLINICAL HISTORY: Reason for exam: stroke symptoms, LLE weakness, HTN. TECHNIQUE: Axial computed tomography images of the head/brain without intravenous contrast. CTDI is 45.65 mGy and DLP is 677.75 mGy-cm. Automated exposure control was utilized for the study. A dose lowering technique was utilized adhering to the principles of ALARA. COMPARISON: None. FINDINGS: Brain: Scattered areas of decreased attenuation within the deep white matter suggestive of mild microangiopathic white matter disease. No hemorrhage. Ventricles: Unremarkable. No ventriculomegaly. Bones/joints: Unremarkable. No acute fracture. Soft tissues: Unremarkable. Sinuses: Unremarkable as visualized. No acute sinusitis. Mastoid air cells: Unremarkable as visualized. No mastoid effusion. IMPRESSION: Chronic changes as described. No acute intracranial hemorrhage or space-occupying lesion. Communications: Call Doctor Stroke Electronically signed by: Marquita Tabor MD 04/06/23 20:53 PM Head CTA 04/06/23 20:23 CR Exam(s): CTA HEAD With Contrast IV Amt: 114 ml optiray 350 EXAM: CT Angiography Head With Intravenous Contrast CLINICAL HISTORY: Reason for exam: stroke symptoms, LLE weakness, HTN. TECHNIQUE: Axial computed tomographic angiography images of the head with intravenous contrast. CTDI is 45.76 mGy and DLP is 677.48 mGy-cm. Automated exposure control was utilized for the study. A dose lowering technique was utilized adhering to the principles of ALARA. MIP reconstructed images were created and reviewed. CONTRAST: Patient received 114 ml optiray 350 of IV contrast COMPARISON: None. FINDINGS: Right internal carotid artery: No acute findings. Intracranial segment is patent with no significant stenosis. No aneurysm. Right anterior cerebral artery: Unremarkable. No occlusion or significant stenosis. No aneurysm. Right middle cerebral artery: Unremarkable. No occlusion or significant stenosis. No aneurysm. Right posterior cerebral artery: Unremarkable. No occlusion or significant stenosis. No aneurysm. Right vertebral artery: Unremarkable as visualized. Left internal carotid artery: No acute findings. Intracranial segment is patent with no significant stenosis. No aneurysm. Left anterior cerebral artery: Unremarkable. No occlusion or significant stenosis. No aneurysm. Left middle cerebral artery: Unremarkable. No occlusion or significant stenosis. No aneurysm. Left posterior cerebral artery: Unremarkable. No occlusion or significant stenosis. No aneurysm. Left vertebral artery: Unremarkable as visualized. Basilar artery: Unremarkable. No occlusion or significant stenosis. No aneurysm. IMPRESSION: Negative CT angiogram of the brain with no focal stenosis, occlusion or aneurysm involving the [place] of [place]. Communications: Call Doctor Stroke Electronically signed by: Marquita Tabor MD 04/06/23 21:16 PM Neck CTA 04/06/23 20:23 CR Exam(s): CTA NECK With Contrast IV Amt: 114 ml optiray 350 EXAM: CT Angiography Neck With Intravenous Contrast CLINICAL HISTORY: Reason for exam: stroke symptoms, LLE weakness, HTN. TECHNIQUE: Routine carotid CT angiography protocol was performed with intravenous contrast. NASCET criteria using the distal ICAs for comparison were used for evaluation of stenoses. CTDI is 11.81 mGy and DLP is 408.05 mGy-cm. Automated exposure control was utilized for the study. A dose lowering technique was utilized adhering to the principles of ALARA. MIP reconstructed images were created and reviewed. CONTRAST: Patient received 114 ml optiray 350 of IV contrast COMPARISON: None. FINDINGS: VASCULATURE: Right common carotid artery: Unremarkable. No occlusion or significant stenosis. No dissection. Right internal carotid artery: Unremarkable. Extracranial segment is patent with no occlusion or significant stenosis. No dissection. Right external carotid artery: Unremarkable. No occlusion. Right vertebral artery: Unremarkable. No occlusion or significant stenosis. No dissection. Left common carotid artery: Unremarkable. No occlusion or significant stenosis. No dissection. Left internal carotid artery: Unremarkable. Extracranial segment is patent with no occlusion or significant stenosis. No dissection. Left external carotid artery: Unremarkable. No occlusion. Left vertebral artery: Unremarkable. No occlusion or significant stenosis. No dissection. NECK: Bones/joints: Unremarkable. Soft tissues: Unremarkable. Lung apices: Clear. Other findings: Nonspecific degenerative disease of the spine. CAROTID STENOSIS REFERENCE USING NASCET CRITERIA: % ICA stenosis = (1 - narrowest ICA diameter/diameter of distal cervical ICA) x 100. Mild - <50% stenosis. Moderate - 50-69% stenosis. Severe - 70-94% stenosis. Near occlusion - 95-99% stenosis. Occluded - 100% stenosis. IMPRESSION: Negative CT angiogram of the neck with no focal stenosis, occlusion or dissection seen. Communications: Call Doctor Stroke Electronically signed by: Marquita Tabor MD 04/06/23 21:[address] abdomen: No acute infectious or inflammatory findings are identified in the abdomen or pelvis. See above. Diagnostic Findings EKG as per my interpretation :Rate 90, NSR, normal axis, septal infarct, T wave abnormalities inferior leads
--- NOTE | 2023-04-06 22:32 | XRay Report ---
SINGLE VIEW CHEST CLINICAL HISTORY: Strokelike symptoms. FINDINGS: An AP, portable, upright chest radiograph is obtained. No prior studies are available for c omparison at the time of dictation. The cardiomediastinal silhouette is unremarkable. There is mild b ibasilar atelectasis. The lungs and pleural spaces are otherwise clear. No pneumothorax is seen. The bony thorax is grossly intact. IMPRESSION: No active disease in the chest. ACT 112: Negative or not required by law. Electronically signed by: Bogdan Ellis M.D. 04/06/2023 10:31 PM
[2023-04-06] MEDS ORDERED: MoRPHine SULFATE 4 MG/ML 1 ML CARP\\VIAL IV PRN (22:37)
[2023-04-06] MEDS ORDERED: oxyCODONE HCL IR 5 MG TAB (IMMEDIATE RELEASE) PO PRN (22:37)
[2023-04-06] MEDS ORDERED: PROMETHAZINE HCL 12.5 MG in SODIUM CHLORIDE 0.9% 50 ML IV PRN (22:37)
[2023-04-06] MEDS ORDERED: ASPIRIN 81 MG ECTAB PO STA (22:38)
[2023-04-06] MEDS ORDERED: ATORVASTATIN 40 MG TAB PO STA (22:38)
[2023-04-06] MEDS: MAGNESIUM SULFATE / D5W 1 GM/100 ML BAG IV SCH (22:48)
--- NOTE | 2023-04-06 23:00 | CT Scan Report ---
CT SCAN OF THE ABDOMEN AND PELVIS WITHOUT IV CONTRAST CLINICAL HISTORY: Low back pain. COMPARISON STUDY: No priors. TECHNIQUE: CT scan of the abdomen and pelvis is performed from the lung bases to the proximal femora. Images are reviewed in the axial, sagittal, and coronal planes. IV contrast was not administered for this examination. A dose lowering technique was utilized adhering to the principles of ALARA. CT DOSE: 1377.85 mGy.cm FINDINGS: Lung bases: The heart is enlarged and without pericardial effusion. The lung bases are clear noting b ibasilar atelectasis. There is a small hiatal hernia. Liver: The unenhanced liver is normal in size, contour, and attenuation. There is no intrahepatic christine iary ductal dilatation. Gallbladder: Unremarkable. Spleen: Normal in size and attenuation. Pancreas: Unremarkable. Adrenal glands: Unremarkable. Kidneys: The unenhanced kidneys are normal in size and without hydronephrosis. Excreted IV contrast f ills the renal collecting systems and ureters. This degrades assessment for renal calculi. There is n o evidence of urothelial lesion within the renal pelvis bilaterally or along the course of the ureter s. There is no evidence of contour deforming renal mass lesion. Abdominal vasculature: The abdominal aorta is normal in course and caliber noting scattered foci of a therosclerotic calcification. Bowel: There is mild colonic diverticulosis without CT evidence of acute diverticulitis. No bowel obs truction is seen. Moderate fecal retention is noted throughout the colon. The appendix is well-visua lized and normal. Peritoneum: There is no intraperitoneal free air or abdominal ascites. There is a fat-containing umbi lical hernia. Lymphadenopathy: None. Pelvic viscera: The bladder is filled with excreted IV contrast and normal in appearance. The uterus and adnexa are normal in appearance Skeletal structures: There is mild lumbosacral spondylosis. No lytic or blastic lesions are seen. IMPRESSION: No acute infectious or inflammatory findings are identified in the abdomen or pelvis. See above. ACT 112: Negative or not required by law. Electronically signed by: Bogdan Ellis M.D. 04/06/2023 10:57 PM
--- NOTE | 2023-04-06 23:17 | XRay Report ---
LEFT WRIST 4 VIEWS CLINICAL HISTORY: Atraumatic left wrist pain. FINDINGS: 4 views of the left wrist are obtained. No prior studies are available for comparison at th e time of dictation. The skeletal structures are well mineralized. No fracture is seen. There is mode rate to advanced osteoarthritic change at the first carpometacarpal articulation with bony overgrowth , sclerosis, and near complete loss of joint space. Degenerative change is also seen involving the ra dial sided carpal bones. No erosive disease is identified. The overlying soft tissues are within norm al limits. IMPRESSION: Degenerative change as above with no acute bony abnormality identified.. Electronically signed by: Bogdan Ellis M.D. 04/06/2023 11:16 PM
[2023-04-06] MEDS ORDERED: PHARMACIST DISCHARGE MED REC CONSULT PRN (23:53)
[2023-04-07] MEDS: LORazepam 0.5 MG TAB PO PRN ×2 (00:05→22:14)
[2023-04-07] MEDS ORDERED: traMADol HCL 50 MG TABLET PO PRN (00:21)
[2023-04-07] MEDS: MAGNESIUM SULFATE / D5W 1 GM/100 ML BAG IV SCH (01:15)
[2023-04-07] MEDS: oxyCODONE HCL IR 5 MG TAB (IMMEDIATE RELEASE) PO PRN (02:30)
--- NOTE | 2023-04-07 02:52 | Magnetic Resonance Report ---
Exam(s): MRI HEAD Without Contrast EXAM: MR Head Without Intravenous Contrast CLINICAL HISTORY: Reason for exam: tia. TECHNIQUE: Magnetic resonance images of the head/brain without intravenous contrast in multiple planes. COMPARISON: CT brain/. FINDINGS: Brain: Mild generalized brain atrophy. No hemorrhage. No restricted diffusion abnormality to suggest acute stroke. Small foci of high signal on T2 within the right basal ganglia and left thalamus, which may indicate sequela of old lacunar infarcts. Areas of mild increased signal within the deep white matter which may indicate mild microangiopathic white matter disease. Ventricles: Unremarkable. No ventriculomegaly. Bones/joints: Unremarkable. Sinuses: Unremarkable as visualized. No acute sinusitis. Mastoid air cells: Unremarkable as visualized. No mastoid effusion. Orbits: Unremarkable as visualized. IMPRESSION: 1. Chronic changes as described. No acute stroke or intracranial hemorrhage. Electronically signed by: Marquita Tabor MD 04/07/23 02:51 AM
[2023-04-07] MEDS ORDERED: HYDROmorphone INJ 0.5 MG/0.5 ML SYR IV PRN (03:25)
[2023-04-07] MEDS ORDERED: LABETALOL HCL IV 5 MG/ML 20ML IV STA (03:26)
[2023-04-07] MEDS: BENZOCAINE 20% (ORAJEL) 11.9 GM TUBE MT PRN ×2 (03:38→20:34)
[2023-04-07] MEDS ORDERED: HYDROmorphone INJ 1 MG/ML SYRINGE IV STA (04:47)
--- NOTE | 2023-04-07 04:51 | CT Scan Report ---
Exam(s): CT FACIAL Without Contrast EXAM: CT Maxillofacial Without Intravenous Contrast CLINICAL HISTORY: Reason for exam: worsening dental pain, R cheek swelling. TECHNIQUE: Axial computed tomography images of the face without intravenous contrast. Automated exposure control was utilized for the study. A dose lowering technique was utilized adhering to the principles of ALARA. COMPARISON: None. FINDINGS: Bones/joints: Mild degenerative disease at the anterior C1-C2 articulation. Otherwise normal visualized upper cervical spine. No acute fracture. Soft tissues: Unremarkable. Orbits: Unremarkable. Sinuses: Unremarkable. No air-fluid levels. Dental: Lucency surrounding the roots of the right posterior molar and right premolar teeth which may indicate periodontal cyst however a dental abscess is not excluded. IMPRESSION: 1. No distinct facial bone fracture seen. 2. Periodontal cyst versus dental abscesses surrounding the roots of the right lower premolar and molar teeth. Follow-up with dental consultation recommended. Electronically signed by: Marquita Tabor MD 04/07/23 04:50 AM
--- NOTE | 2023-04-07 04:59 | Communication Note ---
Date of Service: April 07, 2023 Patient with intractable right jaw/tooth ache and cheek swelling as per RN. No fever, no chills. Facial CT 1. No distinct facial bone fracture seen. 2. Periodontal cyst versus dental abscesses surrounding the roots of the right lower premolar and molar teeth. Follow-up with dental consultation recommended. AP Odontogenic infection IV Unasyn in place of Augmentin OMFS consult N.p.o. until patient seen by OMFS
[2023-04-07] MEDS: AMPICILLIN/SULBACTAM SOD 3,000 MG in 0.9 % SODIUM CHLORIDE 100 ML IV SCH ×4 (05:28→22:14)
[2023-04-07 06:48] LABS: Basophils # (auto) 0.04 K/uL (0.00-0.20); Basophils % (auto) 0.4 %; Eosinophils # (auto) 0.09 K/uL (0.00-0.50); Eosinophils % (auto) 0.8 %; Hematocrit (blood only) 35.1 % (37.0-47.0); Hemoglobin 11.9 g/dl (12.0-16.0); Immature Granulocytes # (auto) 0.03 K/uL (0.01-0.20); Immature Granulocytes % (auto) 0.3 %; Lymphocytes # (auto) 1.67 K/uL (1.20-3.40); Lymphocytes % (auto) 15.8 %; Mean Corpuscular Hemoglobin 29.8 pg (25.0-34.0); Mean Corpuscular Hgb Conc 33.9 g/dL (32.0-36.0); Mean Platelet Volume 9.5 fL (9.4-12.4); Monocytes # (auto) 0.48 K/uL (0.11-0.59); Monocytes % (auto) 4.5 %; Neutrophils # (auto) 8.29 K/uL (1.40-6.50); Neutrophils % (auto) 78.2 %; Platelet Count 320 K/uL (130-400); RDW Coefficient of Variation 14.1 % (11.5-14.5); RDW Standard Deviation 45.2 fL (36.4-46.3); Red Blood Count 3.99 M/uL (4.20-5.40)
[2023-04-07 07:12] LABS: BUN Creatinine Ratio 16.9 (10-20); Calcium 8.8 mg/dl (8.6-10.3); Chol HDL Ratio 5.9 (0-5); Creatinine Clr Calc Pharmacy 86.6 ml/min; Est GFR (African American) 102.2 ml/min; Est GFR (Non-African American) 88.2 ml/min; Potassium 3.9 mmol/L (3.5-5.1)
[2023-04-07 07:37] LABS: Estimated Average Glucose 120 mg/dl; Hemoglobin A1C 5.8 % (4.5-5.6)
[2023-04-07] MEDS: ACETAMINOPHEN 325 MG TAB PO PRN ×2 (07:38→17:56)
[2023-04-07] MEDS ORDERED: AMOXICILLIN/CLAVULANATE 875 MG TAB PO SCH (08:00)
[2023-04-07] MEDS: HYDROmorphone INJ 1 MG/ML SYRINGE IV PRN ×4 (08:01→20:30)
--- NOTE | 2023-04-07 08:59 | Neurology Consultation ---
Date of Consultation April 07, 2023 Assessment & Plan (1) Weakness of left leg: (2) Hypertensive emergency: (3) Arthralgia of multiple joints: (4) Myalgia: (5) Dental abscess: (6) Hx of multiple sclerosis: Plan This patient had the acute onset of some stroke-like symptoms including some left leg weakness and nonspecific speech issues in the setting of a hypertensive emergency. Today, her blood pressure is much improved at 165/85 down from yesterday on presentation at 226/126. Severe hypertension can create stroke- like symptoms. On examination she has no focal findings this morning, no meningeal signs, or encephalopathy. MRI of the brain showed no acute stroke. There were a few mild old small-vessel ischemic changes seen on MRI. The patient has a history of possible multiple sclerosis but I am not certain about this diagnosis. Her MRIs not reminiscent of typical MS. More importantly, her history, in my opinion, is not consistent with MS. She has a lot of arthralgia and myalgia. She has been labeled with fibromyalgia but I wonder about and inflammatory or rheumatologic disease. Patient has a probable right lower jaw dental abscess creating pain currently on IV antibiotic. She has multiple risk factors for stroke most prominently is the hypertension. She is a strong positive family history of cerebrovascular and cardiac vascular disease. There is dyslipidemia and possible early/pre diabetes Recommendations: 1. Agree with controlling blood pressure as you are doing, aiming for a mean arterial pressure over the next 1-2 days of 95-100. 2. Agree with high-dose statin given her total cholesterol of 275. 3. Continue 81 mg aspirin tablet daily 4. Consider IV ketorolac for her aches and pains this may improve her from an anti-inflammatory standpoint as opposed to the narcotics. 5. Consider rheumatologic/neuromuscular evaluation including ESR, CRP, CARLOS EDUARDO 12 profile, CK, aldolase , Lyme antibody titers, etc. 6. The patient lives out of town otherwise I will be obtaining records from [facility] in [facility] to get further information regarding the testing and diagnoses made regarding the MS. 7. She was to follow-up with Dr. Miles at [facility]-I think this is an excellent idea Overall, I spent a total of 75 minutes with this case including review of records, review of MRI films, direct evaluation the patient, report generation, and discussing the case with the patient and RN at bedside, and Dr. Fragoso including differential diagnosis and treatment options. History of Present Illness Reason for Consultation: Patient is a 52-year-old, who I was asked to see the request of Dr. Reeves, for neurologic consultation regarding stroke-like symptoms and other issues. Requesting Physician: Dr. Reeves Attending Physician: Brittany Fragoso MD History of Present Illness This patient has a history of being diagnosed with fibromyalgia in her mid 30s due to aches and pains and fatigue. She is had some weakness all over. She had a significant evaluation in including laboratory studies, imaging studies, and an LP (at [facility]), all of which did not show any specific diagnoses. She was labeled with fibromyalgia and tried multiple different me dications. She remembers tramadol being helpful more so than narcotics. Approximately 3 years ago she was admitted to [facility] in [facility] (near where she lives). She had some left-sided weakness and speech issues. An MRI of the brain apparently showed an acute stroke. There was also other lesions and she ended up having another lumbar puncture and was told by another clinician that she had active multiple sclerosis. She was discharged after 2 weeks from the hospital (including rehab) on medication, but she can not remember anything specific. She does not remember any injections or pills for multiple sclerosis. She was supposed to follow-up as an outpatient but then COVID head and she could not get any follow-up. In addition she did not have any insurance so she remained off medication ever since. Over the years particularly the last 6 months she is had chronic aches and pains. This is mostly in her joints (hips, knees, shoulders, wrists, hands) and her low back and cervical spine. About a year and a half ago she had an injection into her cervical spine which helped considerably for a couple of months. The muscles can be achy and she feels a weakness in general but no specific or focal weakness. She does not have any numbness or lack of feeling. Occasionally her right eye is blurry (comes and goes). Her memory is affected short term and she has some history of depression and mood issues (although more recently it was better). She ended up getting a divorce years ago from her and then they are back together again. Starting the evening of the she started getting headache. She was dizzy and a little imbalanced. The next day, the , he headache was more intense. It was dull, intense, and bifrontal without nausea, vomiting, photophobia, phonophobia. She had some left leg weakness and some speech issues. She arrived to the emergency room on April 06 that 1935 with a temperature of 36.9, pulse 89 and regular, respiratory rate 16, blood pressure 226/126, and O2 saturation 96%. She had some slight intermittent word-finding difficulties and some left lower extremity weakness otherwise her exam was unremarkable. CBC and Chem profile were unremarkable although glucose was 123. TSH was 2.[address] scan of the head showed no acute changes but did show old small-vessel ischemic disease. CT angiography of the head and neck were unremarkable with no vascular stenoses or anomalies. Chest x-ray was unremarkable. CT scan of the abdomen pelvis (done for low back pain) was unremarkable. Patient had tele stroke evaluation with Dr. Miles, [facility] and she was out of the tPA window. He recommended 81 mg aspirin tablet at dose statin. MRI of the brain showed no acute stroke. There was some mild old small-vessel ischemic disease however. I reviewed these films and I do not see anything that is reminiscent of multiple sclerosis although 3D sagittal FLAIR images were not obtained. The patient had some right jaw and tooth pain with some facial swelling. Facial CT showed I probable dental abscess on that side. She is had this face pain for couple of days. This morning her headache is gone and she is no weakness or dysesthesias. She is still left with aches and pains in her joints and her right lower jaw. Triglycerides were 97 and total cholesterol 275. Hemoglobin A1c 5.8. CBC and Chem profile were unremarkable. She is been given IV Unasyn. Allergies Allergy/AdvReac Type Severity Reaction Status Date / Time ciprofloxacin Allergy Intermediate Rash Verified 04/06/23 22:15 Home Medications Medication Instructions Recorded Confirmed Type acetaminophen 500 mg tablet 1,000 mg PO DIRECTED PRN Pain 04/06/23 04/06/23 History (Tylenol Extra Strength) ibuprofen 200 mg tablet 800 mg PO DIRECTED PRN Pain 04/06/23 04/06/23 History Patient History Medical History (Updated 04/07/23 @ 08:51 by Mark Mazariegos MD) CVA (cerebral vascular accident) Hx of multiple sclerosis Surgical History (Updated 04/07/23 @ 08:46 by Mark Mazariegos MD) H/O section History of hernia repair Family History Mother , age 73 of a stroke Stroke Father , age 50 of an [place] Myocardial infarction Social History (Updated 04/07/23 @ 08:47 by Mark Mazariegos MD) Smoking Status: Never smoker Hx Alcohol Use: Yes Alcohol type: beer and wine Alcohol Intake Frequency: Monthly or Less Hx Substance Use: No Preferred Language: Maltese Communication Ability: Effective 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 Beliefs That Will Affect Care: None Current Living Situation: Spouse 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 Feels Safe at Home: Yes Review of Systems Constitutional: + fatigue and + weakness; no fever Eyes: no diplopia, no eye pain and no worsening vision Ear, Nose, Mouth, Throat: no ear pain, no tinnitus, no hearing loss, no dizziness, no snoring, no hoarseness and no dysphagia Respiratory: no cough and no dyspnea Cardiovascular: no chest pain, no palpitations and no lightheadedness Gastrointestinal: no abdominal pain, no nausea and no vomiting Genitourinary: no dysuria, no urinary frequency and no urinary incontinence Musculoskeletal: + back pain, + neck pain, + joint pain and + myalgia; no radicular pain Integumentary: no rash and no lesions Neurologic: + gait abnormality, + generalized weakness and + headache(s); no localized weakness, no tingling, no numbness, no tremor(s), no abnormal movements, no abnormal speech, no confusion and no memory loss Psychiatric: + anxiety; no depression, no irritability, no difficulty concentrating, no confusion and no hallucinations Endocrine: no fatigue and no flushing Hematologic / Lymphatic: no easy bleeding and no easy bruising Allergy / Immunological: no urticaria and no problem reported Exam (Neuro) Physical Exam: The patient is right-handed. The patient is awake, alert, and attentive. Speech is normal without any aphasia or dysarthria. The patient can name objects, repeat phrases, and has normal spontaneous speech. Mentation and thought processes are intact, with orientation to person, place and time, and normal fund of knowledge. Attention and concentration are normal. Mood and affect are normal and appropriate. Gen eral appearance and grooming are normal. Short and long-term memory are intact. Pupils are 4 mm bilaterally and reactive to light. Extraocular eye muscles are intact without nystagmus. Visual acuity and visual hogan seem normal grossly to confrontation. There are no deficits to sensation in the face in all 3 distributions of the fifth cranial nerve bilaterally. Corneal reflexes are positive bilaterally. Facial strength and symmetry was normal bilaterally. Hearing seems normal bilaterally. Palate moves well without asymmetry. There is normal sternocleidomastoid and trapezius (shoulder shrug) strength bilaterally. Tongue is midline with good strength bilaterally. The patient has tenderness along her right lower jaw line and cheek with some mild visible swelling cheek Neck has a full range of motion without discomfort. Cervical, thoracic, and lumbar spine are nontender to palpation. Gait is narrow based, with good arm swing, turns, and stance. Balance is normal eyes open or closed. With outstretched arms there is no drift. There are no resting, postural, or action tremors. There is no ataxia with finger to nose testing. There is good facility in the hands. No other abnormal involuntary movements are noted. 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 Motor strength is 5/5 diffusely in the legs bilaterally including hip flexors, quadriceps, hamstrings, gastrocnemius, tibialis anterior, tibialis posterior, and Peroneii muscles. Toe extensors are normal and there is good bulk in the extensor digitorum brevis muscles bilaterally. The limbs have good tone without rigidity or spasticity. There is no atrophy noted in the muscles. Muscle bulk is normal, there is no tenderness to palpation, no myotonia to percussion, and no fasciculations seen. Sensory examination is intact to touch and pin throughout all 4 limbs diffusely. Reflexes are 2/4 in the biceps, triceps, brachioradialis, quadriceps, and Achilles tendons bilaterally. There is no clonus bilaterally. Toes are downgoing with plantar stimulation bilaterally. Peripheral pulses are present and of normal quality distally in all 4 limbs. There is no peripheral edema noted in the limbs. Results & Data Vital Signs (Past 12 Hours) Vital Signs Temp Pulse Pulse Resp BP BP BP 08/30/23 07:27 36.9 C 80 20 165/85 H 04/07/23 07:08 36.9 C 76 18 178/82 H 04/07/23 05:00 72 195/119 H 04/07/23 04:37 77 197/117 H 04/07/23 04:06 70 203/118 H 04/07/23 05:30 76 183/99 H 04/07/23 03:37 81 208/125 H 04/07/23 03:24 36.6 C 81 20 208/125 H 04/07/23 00:00 75 04/07/23 00:39 77 148/85 H 04/06/23 23:53 36.6 C 79 20 172/99 H 04/06/23 23:15 77 16 126/73 04/06/23 23:00 75 18 134/93 04/06/23 22:45 73 21 148/90 H 04/06/23 22:30 73 17 144/92 H 04/06/23 22:16 74 16 147/95 H 04/06/23 22:22 75 148/102 H 04/06/23 22:00 75 15 148/102 H 04/06/23 21:45 77 15 148/92 H 04/06/23 21:30 89 13 169/133 H 04/06/23 21:16 92 H 23 193/130 H 04/06/23 21:01 100 H 20 216/140 H 04/06/23 20:45 96 H 22 191/121 H 04/06/23 20:37 91 H 19 196/117 H Pulse Ox O2 Del Method 04/07/23 07:27 95 Room Air 04/07/23 07:08 96 Room Air 04/07/23 05:00 04/07/23 04:37 04/07/23 04:06 04/07/23 05:30 04/07/23 03:37 04/07/23 03:24 94 Room Air 04/07/23 00:00 04/07/23 00:39 04/06/23 23:53 96 Room Air 04/06/23 23:15 93 Room Air 04/06/23 23:00 96 Room Air 04/06/23 22:45 96 Room Air 04/06/23 22:30 95 Room Air 04/06/23 22:16 96 Room Air 04/06/23 22:22 08/29/23 22:00 96 Room Air 04/06/23 21:45 93 Room Air 04/06/23 21:30 95 Room Air 04/06/23 21:16 95 Room Air 04/06/23 21:01 96 Room Air 04/06/23 20:45 97 Room Air 04/06/23 20:37 97 Room Air PG Care Time/CCT Total # of Minutes Spent Total Time Spent with Patient: Total time spent is greater than 50% in coordination of care (as documented) at patient's floor/unit and/or counseling patient: Coding Level of Care Code 64325 INT INP/OBS CARE 3/75MIN Diagnoses Weakness of left leg R29.898 Hypertensive emergency I16.1 Arthralgia of multiple joints M25.50 Myalgia M79.10 Dental abscess K04.7 Hx of multiple sclerosis G35 Time Spent (min) 75
[2023-04-07] MEDS: ASPIRIN 81 MG ECTAB PO SCH (09:04)
[2023-04-07] MEDS: ENOXAPARIN INJ 40 MG/0.4 ML SYR SQ SCH (09:05)
[2023-04-07] MEDS ORDERED: KETOROLAC 30 MG/ML VIAL IV ONE (11:15)
--- NOTE | 2023-04-07 16:53 | Hospitalist Progress Note ---
Date of Service April 07, 2023 Assessment & Plan (1) Hypertensive emergency: Plan: Precipitated by odontogenic infection and complicated UTI, no sepsis for now OTC NSAID intake hx medical noncompliance. Infected right lower molar teeth Has been started on intravenous Unasyn Appreciate orofacial surgery input and recommendation We will keep her n.p.o. tonight for possible molar extraction tomorrow Recurrent TIA secondary to uncontrolled blood pressure History of multiple sclerosis as per records LLE numbness currently resolved. Aspirin and statin Rx for possible TIA as per [facility] neurologist recommendation. MRI has been unremarkable Appreciate neurology input and recommendation Hypertensive emergency Received intravenous labetalol and started on oral lisinopril Blood pressure remains at the upper and at 150/81 We will continue current medication Hyperlipidemia, not on statin medications Left wrist pain possible neuropathy rule out bony pathology Hyperglycemia rule out DM PCU Careful lowering of blood pressure. Initiate prior lisinopril Rx Check hemoglobin A1c -5.8 DVT prophylaxis with Lovenox subcu Full code Admission and Anticipated Discharge Date Admission Date: April 06, 2023 Subjective 04/07/2023 The patient was seen and examined in telemetry unit She complains to have pain in the right lower jaw jaw Occasional headache but that has been improving Denies any chest pain and her palpitation Review of Systems Review of Systems: All systems reviewed and are unremarkable except as noted below Physical Exam Physical Exam: Lying in bed very anxious Constitutional: well developed, well nourished, + ill appearing and + obese Eyes: PERRL, conjunctivae normal, anicteric sclerae ENMT: external ear and nose normal, oropharynx normal Neck: trachea midline, no thyromegaly Respiratory: no respiratory distress Auscultation: lungs clear to auscultation bilaterally Cardiovascular: Rate/Rhythm: regular rate and regular rhythm; not tachycardic Heart Sounds: normal S1 and normal S2; no murmur Extremities: no edema Gastrointestinal (Abdomen): Inspection/Auscultation: normal bowel sounds; abdomen not distended Percussion/Palpation: abdomen soft; abdomen nontender Musculoskeletal: No acute arthritis involving any joint Neurologic: normal touch/pain/proprioception and moves all extremities; no focal motor deficits Psychiatric: A+Ox3, euthymic affect Lymphatic: no cervical or axillary lymphadenopathy Results & Data Results & Data Vital Signs (Past 12 Hours) Vital Signs Temp Pulse Pulse Resp BP BP Pulse Ox 04/07/23 15:36 36.8 C 65 18 150/81 H 96 04/07/23 11:22 36.8 C 73 19 133/79 92 04/07/23 08:00 82 04/07/23 07:27 36.9 C 80 20 165/85 H 95 04/07/23 07:08 36.9 C 76 18 178/82 H 96 04/07/23 05:00 72 195/119 H 04/07/23 05:30 76 183/99 H O2 Del Method 04/07/23 15:36 Room Air 04/07/23 11:22 Room Air 04/07/23 08:00 04/07/23 07:27 Room Air 04/07/23 07:08 Room Air 04/07/23 05:00 04/07/23 05:30 Laboratory Results Short CBC 04/06/23 04/07/23 Range/Units 19:45 06:06 WBC 6.73 10.60 (4.8-10.8) K/ul Hgb 12.3 11.9 L (12.0-16.0) g/dl Hct 35.6 L 35.1 L (37.0-47.0) % Plt Count 329 320 (130-400) K/uL BMP 04/06/23 04/07/23 19:45 06:06 Sodium 137 137 Potassium 3.8 3.9 Chloride 104 104 Carbon Dioxide 25 23 BUN 18 13 Creatinine 0.90 0.77 Glucose 123 H 123 H Calcium 9.6 8.8 Liver Function 04/06/23 Range/Units 19:45 Total Bilirubin 0.5 (0.2-1.0) mg/dl AST 12 L (13-39) U/L ALT 14 (7-52) U/L Alkaline Phosphatase 99 (34-104) U/L Albumin 4.5 (3.4-5.0) gm/dl Urine 04/06/23 Range/Units 20:30 Urine Color Yellow Urine Appearance Clear (Clear) Urine pH 6.0 (4.5-7.5) Ur Specific [place] 1.009 (1.000-1.030) Urine Protein Negative (Negative) Urine Glucose (UA) Negative (Negative) Medications Administered Current Inpatient Medications Acetaminophen (Acetaminophen 325 Mg Tab) 650 mg PO Q6H PRN PRN Reason: Fever/Pain Stop: 05/07/23 03:22 Last Admin: 08/30/23 07:38 Dose: 650 mg Aspirin (Aspirin 81 Mg Ectab) 81 mg PO QAM BRENDA Stop: 05/07/23 08:59 Last Admin: 04/07/23 09:04 Dose: 81 mg Atorvastatin Calcium (Atorvastatin 40 Mg Tab) 40 mg PO HS BRENDA Stop: 05/07/23 20:59 Benzocaine (Benzocaine 20% (Orajel) 11.9 Gm Tube) 1 appln MT TID PRN PRN Reason: painful tooth Stop: 05/07/23 03:25 Last Admin: 04/07/23 03:38 Dose: 1 appln Enoxaparin Sodium (Enoxaparin Inj 40 Mg/0.4 Ml Syr) 40 mg SQ QAM [facility] Stop: 05/07/23 08:59 Last Admin: 04/07/23 09:05 Dose: 40 mg Hydromorphone HCl (Hydromorphone Inj 1 Mg/Ml Syringe) 1 mg IV Q3H PRN PRN Reason: Pain Stop: 04/21/23 03:24 Last Admin: 04/07/23 14:29 Dose: 1 mg Potassium Chloride/Sodium Chloride (Normal Saline W/20 Meq Kcl) 20 meq in 1,000 mls @ 50 mls/hr IV .Q20H ONE; Protocol Stop: 04/07/23 18:13 Last Admin: 04/06/23 22:48 Dose: 50 mls/hr Promethazine HCl 12.5 mg/ (Sodium Chloride) 50.5 mls @ 202 mls/hr IV Q6H PRN PRN Reason: Nausea And Vomiting Stop: 05/06/23 22:36 Ampicillin Sodium/Sulbactam Sodium 3,000 mg/ Sodium Chloride 108 mls @ 200 mls/hr IV Q6H [facility]; Protocol Stop: 04/17/23 04:59 Last Infusion: 04/07/23 12:24 Dose: Infused Lisinopril (Lisinopril 5 Mg Tab) 5 mg PO HS BRENDA Stop: 05/07/23 20:59 Lorazepam (Lorazepam 0.5 Mg Tab) 0.5 mg PO TID PRN PRN Reason: Anxiety Stop: 05/06/23 22:36 Last Admin: 04/07/23 00:05 Dose: 0.5 mg Oxycodone HCl (Oxycodone Hcl Ir 5 Mg Tab (Immediate Release)) 5 - 10 mg PO QID PRN PRN Reason: Pain Stop: 04/21/23 01:23 Last Admin: 04/07/23 02:30 Dose: 10 mg
--- NOTE | 2023-04-07 19:47 | Anesthesiology Consultation ---
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 History Surgery Operation Date: 04/08/23 12:15 Proposed Procedures p Removal Teeth #30 and #31 - Jesus Brasher DMD Height/Weight Height: 5 ft 3 in Weight: 83.8 kg Allergies Allergy/AdvReac Type Severity Reaction Status Date / Time ciprofloxacin Allergy Intermediate Rash Verified 04/06/23 22:15 Medications Home Medications Medication Instructions Recorded Confirmed Last Taken acetaminophen 500 mg tablet 1,000 mg PO DIRECTED PRN Pain 04/06/23 04/06/23 04/06/23 06:00 (Tylenol Extra Strength) ibuprofen 200 mg tablet 800 mg PO DIRECTED PRN Pain 04/06/23 04/06/23 04/06/23 19:00 Active Medications Generic Name Dose Route Start Last Admin Trade Name Freq PRN Reason Stop Dose Admin Acetaminophen 650 mg 04/07/23 03:23 04/07/23 17:56 Acetaminophen 325 Mg Tab PO 05/07/23 03:22 650 mg Q6H PRN Administration Fever/Pain Aspirin 81 mg 04/07/23 09:00 04/07/23 09:04 Aspirin 81 Mg Ectab PO 05/07/23 08:59 81 mg QAM BRENDA Administration Benzocaine 1 appln 04/07/23 03:26 04/07/23 03:38 Benzocaine 20% (Orajel) 11.9 Gm Tube MT 05/07/23 03:25 1 appln TID PRN Administration painful tooth Enoxaparin Sodium 40 mg 04/07/23 09:00 04/07/23 09:05 Enoxaparin Inj 40 Mg/0.4 Ml Syr SQ 05/07/23 08:59 40 mg QAM BRENDA Administration Hydromorphone HCl 1 mg 04/07/23 04:48 04/07/23 17:22 Hydromorphone Inj 1 Mg/Ml Syringe IV 04/21/23 03:24 1 mg Q3H PRN Administration Pain Ampicillin Sodium/Sulbactam 108 mls @ 200 mls/hr 04/07/23 05:00 04/07/23 17:22 Sodium 3,000 mg/ Sodium IV 04/17/23 04:59 Infused Chloride Q6H BRENDA Infusion Protocol Lorazepam 0.5 mg 04/06/23 22:37 04/07/23 00:05 Lorazepam 0.5 Mg Tab PO 05/06/23 22:36 0.5 mg TID PRN Administration Anxiety Oxycodone HCl 5 - 10 mg 04/07/23 01:24 04/07/23 02:30 Oxycodone Hcl Ir 5 Mg Tab (Immediate Release) PO 04/21/23 01:23 10 mg QID PRN Administration Pain Past Medical History Medical History CVA (cerebral vascular accident) Hx of multiple sclerosis Past Family History Family History Mother , age 73 of a stroke Stroke Father , age 50 of an [place] Myocardial infarction Past Surgical History Surgical History H/O section History of hernia repair Social History Smoking Status: Never smoker Hx Alcohol Use: Yes Alcohol type: beer and wine alcohol intake frequency: holidays/special occasions only Hx Substance Use: No Physical Exam Vital Signs Last Vital Signs Temp 97.9 F 04/07/23 19:34 Pulse 64 04/07/23 19:34 Resp 18 04/07/23 19:34 BP 137/81 04/07/23 19:34 Pulse Ox 98 04/07/23 19:34 O2 Del Method Room Air 04/07/23 19:34 Testing Laboratory Results 04/07/23 06:06 04/07/23 06:06 PT 10.3 Seconds (9.0-12.0) 04/06/23 19:45 INR 0.9 (0.9-1.1) 04/06/23 19:45 APTT 26.5 Seconds (21.0-31.0) 04/06/23 19:45 Hemoglobin A1c 5.8 % (4.5-5.6) H 04/06/23 19:45 Urine Color Yellow 04/06/23 20:30 Urine Appearance Clear (Clear) 04/06/23 20:30 Urine pH 6.0 (4.5-7.5) 04/06/23 20:30 Ur Specific Presto 1.009 (1.000-1.030) 04/06/23 20:30 Urine Protein Negative (Negative) 04/06/23 20:30 Urine Glucose (UA) Negative (Negative) 04/06/23 20:30 Urine Ketones Negative (Negative) 04/06/23 20:30 Urine Nitrite Negative (Negative) 04/06/23 20:30 Ur Leukocyte Esterase 2+ (Negative) H 04/06/23 20:30 Urine WBC (Auto) 10-30 /hpf (0-5) H 04/06/23 20:30 Urine RBC (Auto) 0-4 /hpf (0-4) 04/06/23 20:30 U Hyaline Cast (Auto) 1-5 /lpf (0-5) 04/06/23 20:30 U Epithel Cells (Auto) >30 /lpf (0-5) H 04/06/23 20:30 Urine Bacteria (Auto) 1+ (Negative) H 04/06/23 20:30 04/06/23 20:30 Urine Culture - Preliminary Urine,Clean Catch No growth - Less than 1,000 colonies/mL, Final report to follow. Electrocardiogram Date: 04/06/23 Normal sinus rhythm, rate 96 bpm Possible Left atrial enlargement Possible Anterior infarct , age undetermined T wave abnormality, consider lateral ischemia Abnormal ECG When compared with ECG of 06-APR-2023 19:43, (unconfirmed) Inverted T waves have replaced nonspecific T wave abnormality in Inferior leads Chest X-Ray Date: 04/06/23 Findings: + NAD Echocardiogram Date: 04/07/23 LV is normal in size Mild concentric LVH LV wall motion is normal LV systolic and diastolic function is normal EF 60-65% Borderline LA enlargement There is no valvular disease The interatrial septum is intact with no evidence for an atrial septal defect Injection of contrast documented no interatrial shunt
[2023-04-07] MEDS: ATORVASTATIN 40 MG TAB PO SCH (20:29)
[2023-04-07] MEDS ORDERED: lisinopril 5 MG TAB PO SCH (21:00)
--- NOTE | 2023-04-07 21:28 | Oral/Maxillofacial Consult ---
Date of Consultation April 07, 2023 Assessment & Plan (1) Dental abscess: (2) Myalgia: (3) Arthralgia of multiple joints: (4) Hypertensive emergency: History of Present Illness Attending Physician: Brittany Fragoso MD History of Present Illness Presenting issues: Hypertensive emergency: Plan: Precipitated by odontogenic infection and complicated UTI, no sepsis for now--Jane told me the dental pain was intense that she may of passed out-CT shows tooth # 30 and 31 grossly decayed with large radiolucent areas at apex with cortical bone erosion. Hx medical noncompliance. Recurrent TIA secondary to uncontrolled blood pressure History of multiple sclerosis as per records LLE numbness currently resolved. The patient is a pleasant 52-year-old woman with a past medical history of multiple sclerosis and stroke 2 years ago per her report who presents to the emergency department via walk-in accompanied by her for evaluation of ongoing headache that began last night with persistence into this morning with development associated dizziness and imbalance that continued into today with associated elevated blood pressure. The patient denies taking any medications on regular basis including medication for blood pressure or stroke prevention. She reports she was initially diagnosed with a stroke at [facility] and had been on medications for a month or so afterwards but reports she lost insurance and never followed up again. She otherwise reports recent pattern of acute episodes of hot flashes and palpitations over the past several months but had never developed severe headache with them as she has now. She reports that she noticed some slight leg weakness when she was walking into the emergency department today but acknowledges this has happened in the past and had attributed to her multiple sclerosis. Upon presenting to triage she reported lightheadedness and headache associate with her blood pressure being elevated. Upon arriving to her room RN evaluation suspected possible extremity drift. On my evaluation the patient is uncomfortable no acute distress, blood pressure 220/120s and vital signs otherwise stable. She appears clinically dry. She exhibits left lower extremity weakness with slight drift though some inconsistent on examination as there is normal strength against resistance. Given the patient's imbalance and dizziness associated with her headache began this morning indicated as she is outside the window however stroke alert was activated for the possibility of large vessel occlusion. I did discuss the case with [facility] telestroke neurology, Dr. Miles, who did evaluate the patient via telestroke terminal. Subsequent, the patient's CT head and CTA of the head neck were negative for acute abnormalities. Appreciate consultation and recommendations. Agrees that TNK not indicated at this time. Further no large vessel occlusion. Agrees that symptoms likely related to hypertensive gilbert rgency. Progress is considered however no evidence of this on imaging at this time. Recommends admission for further treatment of blood pressure and MRI imaging to further characterize symptoms. Recommends initiation of daily aspirin and high-dose statin such as 40 mg of atorvastatin. The patient is from [facility] and is visiting [place] with her partner. Thus, plan will be to follow-up with her she stroke clinic upon discharge. EKG without overt acute ischemia. CXR negative for acute cardiopulmonary process. WBC, hemoglobin and platelets within normal limits. Chemistry without metabolic acidosis. Electrolytes and LFTs without significant abnormality. High- sensitivity troponin 6.1, within normal limits. TSH within normal limits. UA without convincing evidence of infection as epithelial cells are present and negative nitrates. Treatment was initiated with IV fluid hydration as well as IV labetalol for blood pressure control. Case was discussed with Dr. Merritt, [facility] hospitalist who will evaluate the patient for admission. Oral Maxillofacial Surgery Exam Present Complaint: I have pain/swelling/drainage from my infected wisdom teeth. Symptoms have been ongoing for a while. Oral Exam: Finding--P-cor associated with the impacted teeth, tender gingival tissue with d eep pocket formation.Teeth are in an abnormal position and removal is clinical indicated. Imaging: Facial CT 1. No distinct facial bone fracture seen. 2. Periodontal cyst versus dental abscesses surrounding the roots of the right lower premolar and molar teeth. Odontogenic infection lower right side teeth 30,31 Soft tissue: floor of the mouth, tongue, hard/soft palate, posterior pharyngeal area all with in normal limits, no pathology or abnormal findings noted. Oral Care: Overall oral care is good Occlusion: Class I TMJ exam: No pop, clicking, pain, good ROM, No history of TMJ injury or dysfunction Periodontal exam: Healthy gingival tissue without evidence of periodontal pathology. Lower right side gingival tissue swollen secondary to abscessed lower right molars and large carious lesions Head/Neck exam: Neck is supple, FROM, Able to extend and flex neck w/o difficulty, no masses, no abnormalities, no airway issues, no evidence of sleep apnea. Treatment Plan: Obtain medical clearance for for tomorrow for ext of 30 and 31--may be discharged as per medical Set up with general anesthesia in hospital due to complexity of the procedure I reviewed the treatment plan and consent with the patient . Understanding was expressed. Time was given for questions regarding the surgery, risks and post op care. Discussed alternative to treatment--procedure as planned, Do not do surgery The following teeth are decayed and fractured and removal is indicated TANK: abscessed # 30,31 Risks discussed: Bleeding,Pain,swelling,infection, dry socket, delayed healing, nerve injury to face,lips,tongue,chin area which could be permanent (rare). TMJ, jaw stiffness, change in bite (rare), ear pain (referred). Sinus problems like fistula or infection. Need to leave a small root fragment in place to avoid injury to nerve or sinus. Relationship of 30 and 31 teeth to nerve and risk of jaw fracture ( very rare) Home care reviewed: tooth brushing, rinsing, follow up care with Dr Brasher or dentist closer to her home diet=[id number] dental. Discussed activity level, driving/work while on Rx pain Meds. Surgery to be set up once cleared by medicine for tomorrow afternoon IV Unasyn in place of Augmentin OMFS consult N.p.o. until patient seen by OMFS Allergies Allergy/AdvReac Type Severity Reaction Status Date / Time ciprofloxacin Allergy Intermediate Rash Verified 04/06/23 22:15 Home Medications Medication Instructions Recorded Confirmed Type acetaminophen 500 mg tablet 1,000 mg PO DIRECTED PRN Pain 04/06/23 04/06/23 History (Tylenol Extra Strength) ibuprofen 200 mg tablet 800 mg PO DIRECTED PRN Pain 04/06/23 04/06/23 History Patient History Medical History CVA (cerebral vascular accident) Hx of multiple sclerosis Surgical History H/O section History of hernia repair Family History Mother , age 73 of a stroke Stroke Father , age 50 of an [place] Myocardial infarction Social History (Updated 04/07/23 @ 08:47 by Mark Mazariegos MD) Smoking Status: Never smoker Hx Alcohol Use: Yes Alcohol type: beer and wine Alcohol Intake Frequency: Monthly or Less Hx Substance Use: No Preferred Language: Belarusian Communication Ability: Effective Compliance Paralegal Required: No Beliefs That Will Affect Care: None Current Living Situation: Spouse 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 Other Information That Helps Us Care for You: No Feels Safe at Home: Yes Safety Concerns: Feels Safe At This Time Assistive Devices: Cane Results & Data Vital Signs (Past 12 Hours) Vital Signs Temp Pulse Pulse Resp BP BP Pulse Ox 04/07/23 19:34 36.6 C 64 18 137/81 98 04/07/23 16:00 70 04/07/23 15:36 36.8 C 65 18 150/81 H 96 04/07/23 11:22 36.8 C 73 19 133/79 92 O2 Del Method 04/07/23 19:34 Room Air 04/07/23 16:00 04/07/23 15:36 Room Air 04/07/23 11:22 Room Air PG Care Time/CCT Total # of Minutes Spent Total Time Spent with Patient: Total time spent is greater than 50% in coordination of care (as documented) at patient's floor/unit and/or counseling patient: Coding Level of Care Code 44575 IN/OBS CONSULT LVL 2,35M Diagnoses Dental abscess K04.7 Myalgia M79.10 Arthralgia of multiple joints M25.50 Hypertensive emergency I16.1
[2023-04-07] MEDS: ACETAMINOPHEN 500 MG TAB PO PRN (22:50)
[2023-04-08] MEDS: HYDROmorphone INJ 1 MG/ML SYRINGE IV PRN ×4 (04:09→22:39)
[2023-04-08] MEDS: AMPICILLIN/SULBACTAM SOD 3,000 MG in 0.9 % SODIUM CHLORIDE 100 ML IV SCH ×4 (04:09→22:48)
[2023-04-08] MEDS: ACETAMINOPHEN 500 MG TAB PO PRN ×4 (04:09→18:25)
[2023-04-08] MEDS ORDERED: LR 15ML/HR IV SCH (06:00)
[2023-04-08 06:52] LABS: Basophils # (auto) 0.03 K/uL (0.00-0.20); Basophils % (auto) 0.5 %; Eosinophils # (auto) 0.17 K/uL (0.00-0.50); Hematocrit (blood only) 36.4 % (37.0-47.0); Hemoglobin 12.5 g/dl (12.0-16.0); Immature Granulocytes # (auto) 0.02 K/uL (0.01-0.20); Immature Granulocytes % (auto) 0.4 %; Lymphocytes % (auto) 35.3 %; Mean Corpuscular Hemoglobin 29.8 pg (25.0-34.0); Mean Corpuscular Hgb Conc 34.3 g/dL (32.0-36.0); Mean Corpuscular Volume 86.7 fL (80.0-100.0); Mean Platelet Volume 9.4 fL (9.4-12.4); Monocytes % (auto) 7.1 %; Neutrophils # (auto) 3.05 K/uL (1.40-6.50); Neutrophils % (auto) 53.7 %; Platelet Count 307 K/uL (130-400); RDW Coefficient of Variation 14.2 % (11.5-14.5); RDW Standard Deviation 45.1 fL (36.4-46.3); White Blood Count 5.67 K/ul (4.8-10.8)
[2023-04-08 07:12] LABS: BUN Creatinine Ratio 15.4 (10-20); Calcium 9.1 mg/dl (8.6-10.3); Creatinine Clr Calc Pharmacy 85.5 ml/min; Est GFR (African American) 100.6 ml/min; Est GFR (Non-African American) 86.8 ml/min
[2023-04-08] MEDS ORDERED: lisinopril 10 MG TAB PO STA (11:07)
--- NOTE | 2023-04-08 14:17 | Hospitalist Progress Note ---
Date of Service April 08, 2023 Assessment & Plan (1) Hypertensive emergency: Plan: Precipitated by odontogenic infection and complicated UTI, no sepsis for now OTC NSAID intake hx medical noncompliance. Infected right lower molar teeth Has been started on intravenous Unasyn Appreciate orofacial surgery input and recommendation We will keep her n.p.o. tonight for possible molar extraction tomorrow We will have her right lower molar tooth extraction this afternoon Recurrent TIA secondary to uncontrolled blood pressure History of multiple sclerosis as per records LLE numbness currently resolved. Aspirin and statin Rx for possible TIA as per [facility] neurologist recommendation. MRI has been unremarkable Appreciate neurology input and recommendation No more neurological symptoms Hypertensive emergency Received intravenous labetalol and started on oral lisinopril Blood pressure remains at the upper and at 150/81 We will continue current medication Blood pressure was noted to be very high this morning and received additional dose of lisinopril and lisinopril dose has been increased from 5 to 10 mg from tonight Likely discharge tomorrow following tooth extraction Hyperlipidemia, not on statin medications Left wrist pain possible neuropathy rule out bony pathology Hyperglycemia rule out DM PCU Careful lowering of blood pressure. Initiate prior lisinopril Rx Check hemoglobin A1c -5.8 DVT prophylaxis with Lovenox subcu Full code Admission and Anticipated Discharge Date Admission Date: April 06, 2023 Subjective 04/07/2023 The patient was seen and examined in telemetry unit She complains to have pain in the right lower jaw jaw Occasional headache but that has been improving Denies any chest pain and her palpitation 04/08/2023 The patient was seen and examined in telemetry unit She was noted to have very high blood pressure of systolic more than 170s and diastolic more than 119 this morning Denies any symptoms associated with it She will have molar tooth extraction on the right side this afternoon Review of Systems Review of Systems: All systems reviewed and are unremarkable except as noted below Physical Exam Physical Exam: Lying in bed very anxious Constitutional: well developed, well nourished, + ill appearing and + obese Eyes: PERRL, conjunctivae normal, anicteric sclerae ENMT: external ear and nose normal, oropharynx normal Neck: trachea midline, no thyromegaly Respiratory: no respiratory distress Auscultation: lungs clear to auscultation bilaterally Cardiovascular: Rate/Rhythm: regular rate and regular rhythm; not tachycardic Heart Sounds: normal S1 and normal S2; no murmur Extremities: no edema Gastrointestinal (Abdomen): Inspection/Auscultation: normal bowel sounds; abdomen not distended Percussion/Palpation: abdomen soft; abdomen nontender Neurologic: normal touch/pain/proprioception and moves all extremities; no focal motor deficits Psychiatric: A+Ox3, euthymic affect Lymphatic: no cervical or axillary lymphadenopathy Results & Data Results & Data Vital Signs (Past 12 Hours) Vital Signs Temp Pulse Pulse Resp BP Pulse Ox O2 Del Method 04/08/23 12:02 36.5 C 74 18 174/119 H 98 Room Air 04/08/23 11:00 174/107 H 04/08/23 08:21 36.5 C 80 18 95 Room Air 04/08/23 08:00 66 04/08/23 02:27 37.1 C 89 18 160/94 H 96 Room Air Laboratory Results Short CBC 04/08/23 Range/Units 05:46 WBC 5.67 (4.8-10.8) K/ul Hgb 12.5 (12.0-16.0) g/dl Hct 36.4 L (37.0-47.0) % Plt Count 307 (130-400) K/uL [facility] 04/08/23 05:46 Sodium 137 Potassium 4.0 Chloride 105 Carbon Dioxide 24 BUN 12 Creatinine 0.78 Glucose 99 Calcium 9.1 Medications Administered Current Inpatient Medications Acetaminophen (Acetaminophen 500 Mg Tab) 500 mg PO Q4H PRN PRN Reason: Pain Stop: 05/07/23 22:32 Last Admin: 04/08/23 12:13 Dose: 500 mg Aspirin (Aspirin 81 Mg Ectab) 81 mg PO QAM BRENDA Stop: 05/07/23 08:59 Last Admin: 04/07/23 09:04 Dose: 81 mg Atorvastatin Calcium (Atorvastatin 40 Mg Tab) 40 mg PO HS [facility] Stop: 05/07/23 20:59 Last Admin: 04/07/23 20:29 Dose: 40 mg Benzocaine (Benzocaine 20% (Orajel) 11.9 Gm Tube) 1 appln MT TID PRN PRN Reason: painful tooth Stop: 05/07/23 03:25 Last Admin: 04/07/23 20:34 Dose: 1 appln Enoxaparin Sodium (Enoxaparin Inj 40 Mg/0.4 Ml Syr) 40 mg SQ QAM BRENDA Stop: 05/07/23 08:59 Last Admin: 04/07/23 09:05 Dose: 40 mg Hydromorphone HCl (Hydromorphone Inj 1 Mg/Ml Syringe) 1 mg IV Q3H PRN PRN Reason: Pain Stop: 04/21/23 03:24 Last Admin: 04/08/23 12:13 Dose: 1 mg Promethazine HCl 12.5 mg/ (Sodium Chloride) 50.5 mls @ 202 mls/hr IV Q6H PRN PRN Reason: Nausea And Vomiting Stop: 05/06/23 22:36 Ampicillin Sodium/Sulbactam Sodium 3,000 mg/ Sodium Chloride 108 mls @ 200 mls/hr IV Q6H BRENDA; Protocol Stop: 04/17/23 04:59 Last Infusion: 04/08/23 12:18 Dose: Infused Lisinopril (Lisinopril 10 Mg Tab) 10 mg PO HS [facility] Stop: 05/08/23 20:59 Lorazepam (Lorazepam 0.5 Mg Tab) 0.5 mg PO TID PRN PRN Reason: Anxiety Stop: 05/06/23 22:36 Last Admin: 04/07/23 22:14 Dose: 0.5 mg Oxycodone HCl (Oxycodone Hcl Ir 5 Mg Tab (Immediate Release)) 5 - 10 mg PO QID PRN PRN Reason: Pain Stop: 04/21/23 01:23 Last Admin: 04/07/23 02:30 Dose: 10 mg
[2023-04-08] MEDS ORDERED: BUPIVACAINE/EPINEPHRINE 0.5% 1:200,000 1.8 ML CARP ONE (14:59)
[2023-04-08] MEDS ORDERED: CHLORHEXIDINE GLUCONATE 0.12% 480 ML MT ONE (14:59)
[2023-04-08] MEDS ORDERED: KETOROLAC 30 MG/ML VIAL IV PRN (15:04)
[2023-04-08] MEDS ORDERED: LABETALOL HCL IV 5 MG/ML 20ML IV PRN (15:04)
[2023-04-08] MEDS ORDERED: ATROPINE SULFATE 0.1 MG/ML 10ML SYR IV PRN (15:04)
[2023-04-08] MEDS ORDERED: fentaNYL citrate PF 100 MCG/2 ML VIAL ONE (15:06)
[2023-04-08] MEDS ORDERED: MIDAZOLAM HCL 1 MG/ML 2ML VIAL ONE (15:06)
[2023-04-08] MEDS ORDERED: GLYCOPYRROLATE 0.2 MG/ML VIAL ONE (15:11)
[2023-04-08] MEDS ORDERED: PROPOFOL IV EMULSION 10 MG/ML 20 ML VIAL IV ONE (15:11)
[2023-04-08] MEDS ORDERED: LIDOCAINE 2% 2 ML VIAL/AMP(20MG/ML) INFIL ONE (15:11)
[2023-04-08] MEDS ORDERED: ONDANSETRON INJ 2 MG/ML 2 ML VIAL ONE (15:12)
--- NOTE | 2023-04-08 15:27 | History & Physical Bridge Note ---
Date of Service April 08, 2023 History & Physical Bridge Note I have examined the patient, reviewed the History & Physical and in the interval since the performance of the History & Physical I have noted the following changes of clinical significance: no changes noted OK for planned medically necessary procedure
[2023-04-08] MEDS ORDERED: Nursing to Pharmacy Communication SCH (15:30)
[2023-04-08] MEDS ORDERED: KETAMINE 50 MG/5 ML SYRINGE ONE (15:32)
[2023-04-08] MEDS ORDERED: LABETALOL HCL IV 5 MG/ML 20ML IV ONE (15:44)
[2023-04-08] MEDS: fentaNYL citrate PF 100 MCG/2 ML VIAL IV PRN ×3 (16:24→16:34)
--- NOTE | 2023-04-08 17:13 | Anesthesiology Progress Note ---
Date of Service April 08, 2023 Anesthesia Post Procedure Vital Signs Vital Signs: Temp Pulse Pulse Resp BP BP Pulse Ox 04/08/23 17:11 36.6 C 60 18 159/92 H 95 04/08/23 16:50 36.5 C 61 12 153/95 H 94 04/08/23 16:40 36.5 C 63 9 L 171/95 H 97 04/08/23 15:00 78 04/08/23 16:20 63 13 167/100 H 99 04/08/23 16:30 65 13 167/101 H 99 04/08/23 16:10 75 15 190/107 H 96 04/08/23 16:00 37.1 C 78 16 172/108 H 97 04/08/23 14:30 36.5 C 74 20 179/111 H 202/109 H 100 04/08/23 12:02 36.5 C 74 18 174/119 H 98 04/08/23 11:00 174/107 H 04/08/23 08:21 36.5 C 80 18 95 04/08/23 08:00 66 04/08/23 02:27 37.1 C 89 18 160/94 H 96 04/08/23 00:47 95 H 04/07/23 22:45 36.9 C 78 18 164/93 H 97 04/07/23 19:34 36.6 C 64 18 137/81 98 O2 Del Method O2 Flow Rate 04/08/23 17:11 Room Air 04/08/23 16:50 Nasal Cannula 2 04/08/23 16:40 Nasal Cannula 2 04/08/23 15:00 04/08/23 16:20 Nasal Cannula 2 04/08/23 16:30 Nasal Cannula 2 04/08/23 16:10 Nasal Cannula 2 04/08/23 16:00 Nasal Cannula 2 04/08/23 14:30 Room Air 04/08/23 12:02 Room Air 04/08/23 11:00 04/08/23 08:21 Room Air 04/08/23 08:00 04/08/23 02:27 Room Air 04/08/23 00:47 04/07/23 22:45 Room Air 04/07/23 19:34 Room Air Pain Intensity Head: Pain Intensity: 0 Right Cheek: Pain Intensity: 2 Transfer of Care Handoff Completed per policy Notes Mental Status: alert / awake / arousable Patient Amnestic to Procedure: Yes Nausea / Vomiting: adequately controlled Pain: adequately controlled Airway Patency, RR, SpO2: stable & adequate BP & HR: stable & adequate Hydration State: stable & adequate Anesthetic Complications: no major complications apparent and Pt Satisfied with anesthetic care
[2023-04-08] MEDS: ENOXAPARIN INJ 40 MG/0.4 ML SYR SQ SCH (17:40)
[2023-04-08] MEDS: ASPIRIN 81 MG ECTAB PO SCH (17:40)
[2023-04-08] MEDS: CHLORHEXIDINE GLUCONATE 0.12% 480 ML MT SCH (20:07)
[2023-04-08] MEDS: LORazepam 0.5 MG TAB PO PRN (20:08)
[2023-04-08] MEDS: ATORVASTATIN 40 MG TAB PO SCH (20:08)
[2023-04-08] MEDS ORDERED: lisinopril 10 MG TAB PO SCH (21:00)
[2023-04-09] MEDS: oxyCODONE HCL IR 5 MG TAB (IMMEDIATE RELEASE) PO PRN ×4 (00:34→14:40)
[2023-04-09] MEDS: HYDROmorphone INJ 1 MG/ML SYRINGE IV PRN (01:57)
[2023-04-09] MEDS: ACETAMINOPHEN 500 MG TAB PO PRN ×2 (02:26→11:41)
[2023-04-09] MEDS: AMPICILLIN/SULBACTAM SOD 3,000 MG in 0.9 % SODIUM CHLORIDE 100 ML IV SCH ×2 (04:30→11:41)
[2023-04-09 06:37] LABS: Basophils # (auto) 0.04 K/uL (0.00-0.20); Basophils % (auto) 0.7 %; Eosinophils # (auto) 0.15 K/uL (0.00-0.50); Eosinophils % (auto) 2.6 %; Hematocrit (blood only) 36.1 % (37.0-47.0); Hemoglobin 12.1 g/dl (12.0-16.0); Immature Granulocytes # (auto) 0.02 K/uL (0.01-0.20); Immature Granulocytes % (auto) 0.3 %; Lymphocytes # (auto) 2.43 K/uL (1.20-3.40); Lymphocytes % (auto) 41.5 %; Mean Corpuscular Hemoglobin 29.6 pg (25.0-34.0); Mean Corpuscular Hgb Conc 33.5 g/dL (32.0-36.0); Mean Corpuscular Volume 88.3 fL (80.0-100.0); Mean Platelet Volume 9.4 fL (9.4-12.4); Monocytes # (auto) 0.56 K/uL (0.11-0.59); Monocytes % (auto) 9.6 %; Neutrophils # (auto) 2.66 K/uL (1.40-6.50); Neutrophils % (auto) 45.3 %; Platelet Count 306 K/uL (130-400); RDW Coefficient of Variation 13.9 % (11.5-14.5); RDW Standard Deviation 44.9 fL (36.4-46.3); Red Blood Count 4.09 M/uL (4.20-5.40); White Blood Count 5.86 K/ul (4.8-10.8)
[2023-04-09 06:54] LABS: BUN Creatinine Ratio 18.6 (10-20); Calcium 8.9 mg/dl (8.6-10.3); Creatinine Clr Calc Pharmacy 77.2 ml/min; Est GFR (African American) 89.4 ml/min; Est GFR (Non-African American) 77.1 ml/min; Potassium 4.1 mmol/L (3.5-5.1)
[2023-04-09] MEDS: CHLORHEXIDINE GLUCONATE 0.12% 480 ML MT SCH ×2 (09:25→14:41)
[2023-04-09] MEDS: ASPIRIN 81 MG ECTAB PO SCH (10:01)
[2023-04-09] MEDS: ENOXAPARIN INJ 40 MG/0.4 ML SYR SQ SCH (10:01)
--- NOTE | 2023-04-09 11:22 | Oral/Maxillofacial Progress Nt ---
Date of Service April 09, 2023 Assessment & Plan Admission and Anticipated Discharge Date Admission Date: April 06, 2023 Subjective Post Op infection evaluation of lower right vestibular space infection The infected area is now healing very well. Swelling is gone and the tissue is well sutured, extractions excellent. No drainage is noted. Infection has responded very well to the antibiotics, extraction of # 30,31 and the I and D. I requested that the patient continue with massage, heat and routine dental care. At this time the area is well healed and responded well to treatment. OK for discharge as per oral surgery. Patient lives out of the area and will be followed as needed in her local community. . Results & Data Vital Signs (Past 12 Hours) Vital Signs Temp Pulse Pulse Resp BP Pulse Ox O2 Del Method 04/09/23 11:02 62 04/09/23 08:34 36.5 C 69 18 179/81 H 98 Room Air 04/09/23 04:22 36.8 C 71 16 165/100 H 95 Room Air 04/08/23 23:25 36.9 C 73 16 134/79 94 Room Air PG Care Time/CCT Total # of Minutes Spent Total Time Spent with Patient: Total time spent is greater than 50% in coordination of care (as documented) at patient's floor/unit and/or counseling patient: Coding Level of Care Code None Diagnoses
--- NOTE | 2023-04-09 13:33 | Hospitalist Progress Note ---
Date of Service April 09, 2023 Assessment & Plan (1) Hypertensive emergency: Plan: Precipitated by odontogenic infection and complicated UTI, no sepsis for now OTC NSAID intake hx medical noncompliance. Infected right lower molar teeth Has been started on intravenous Unasyn Appreciate orofacial surgery input and recommendation We will keep her n.p.o. tonight for possible molar extraction tomorrow We will have her right lower molar tooth extraction this afternoon Status post extraction of teeth #30 on 31 on 04/08/2023 Complaining of pain not being controlled with NSAIDs and or Tylenol Will try small dose of narcotic pain medications for a day or 2 She will be given Augmentin for the next 7 days Strongly advised to have follow-up appointment with her PCP Recurrent TIA secondary to uncontrolled blood pressure History of multiple sclerosis as per records LLE numbness currently resolved. Aspirin and statin Rx for possible TIA as per [facility] neurologist recommendation. MRI has been unremarkable Appreciate neurology input and recommendation No more neurological symptoms Hypertensive emergency Received intravenous labetalol and started on oral lisinopril Blood pressure remains at the upper and at 150/81 We will continue current medication Blood pressure was noted to be very high this morning and received additional dose of lisinopril and lisinopril dose has been increased from 5 to 10 mg from tonight Likely discharge tomorrow following tooth extraction Blood pressure remains on the upper side at 173/83 We will continue lisinopril 10 mg and was advised to have follow-up with primary care doctor Hyperlipidemia, not on statin medications Left wrist pain possible neuropathy rule out bony pathology Hyperglycemia rule out DM PCU Careful lowering of blood pressure. Initiate prior lisinopril Rx Check hemoglobin A1c -5.8 DVT prophylaxis with Lovenox subcu Full code Discharge home this afternoon Admission and Anticipated Discharge Date Admission Date: April 06, 2023 Subjective 04/07/2023 The patient was seen and examined in telemetry unit She complains to have pain in the right lower jaw jaw Occasional headache but that has been improving Denies any chest pain and her palpitation 04/08/2023 The patient was seen and examined in telemetry unit She was noted to have very high blood pressure of systolic more than 170s and diastolic more than 119 this morning Denies any symptoms associated with it She will have molar tooth extraction on the right side this afternoon 04/09/2023 The patient was seen and examined in telemetry unit She is a status post right lower molar removed on 04/08/2023 Has been complaining of pain and swelling involving the right side of the face and jaw Blood pressure seems to be stable as of today but remains on the higher side Denies any other symptoms Review of Systems Review of Systems: All systems reviewed and are unremarkable except as noted below Physical Exam Physical Exam: Lying in bed very anxious Constitutional: well developed, well nourished, + ill appearing and + obese Eyes: PERRL, conjunctivae normal, anicteric sclerae ENMT: external ear and nose normal, oropharynx normal Neck: trachea midline, no thyromegaly Right facial swelling specially on the lower jaw area Respiratory: no respiratory distress Auscultation: lungs clear to ausculta tion bilaterally Cardiovascular: Rate/Rhythm: regular rate and regular rhythm; not tachycardic Heart Sounds: normal S1 and normal S2; no murmur Extremities: no edema Gastrointestinal (Abdomen): Inspection/Auscultation: normal bowel sounds; abdomen not distended Percussion/Palpation: abdomen soft; abdomen nontender Musculoskeletal: No acute arthritis involving any joint Neurologic: normal touch/pain/proprioception and moves all extremities; no focal motor deficits Psychiatric: A+Ox3, euthymic affect Lymphatic: no cervical or axillary lymphadenopathy Results & Data Results & Data Vital Signs (Past 12 Hours) Vital Signs Temp Pulse Pulse Resp BP BP Pulse Ox 04/09/23 11:38 36.8 C 113 H 16 173/83 H 97 04/09/23 11:02 62 04/09/23 08:34 36.5 C 69 18 179/81 H 98 04/09/23 04:22 36.8 C 71 16 165/100 H 95 O2 Del Method 04/09/23 11:38 Room Air 04/09/23 11:02 04/09/23 08:34 Room Air 04/09/23 04:22 Room Air Laboratory Results Short CBC 04/09/23 Range/Units 05:50 WBC 5.86 (4.8-10.8) K/ul Hgb 12.1 (12.0-16.0) g/dl Hct 36.1 L (37.0-47.0) % Plt Count 306 (130-400) K/uL BMP 04/09/23 05:50 Sodium 138 Potassium 4.1 Chloride 104 Carbon Dioxide 27 BUN 16 Creatinine 0.86 Glucose 103 H Calcium 8.9 Medications Administered Current Inpatient Medications Acetaminophen (Acetaminophen 500 Mg Tab) 1,000 mg PO Q8H PRN PRN Reason: Pain Stop: 05/08/23 17:18 Last Admin: 04/09/23 11:41 Dose: 1,000 mg Amoxicillin/Clavulanate Potassium (Amoxicillin/Clavulanate 875 Mg Tab) 1 tab PO BIDM [facility]; Protocol Stop: 04/16/23 16:59 Aspirin (Aspirin 81 Mg Ectab) [facility] Stop: 05/07/23 08:59 Last Admin: 04/09/23 10:01 Dose: 81 mg Atorvastatin Calcium (Atorvastatin 40 Mg Tab) 40 mg PO [facility] Stop: 05/07/23 20:59 Last Admin: 04/08/23 20:08 Dose: 40 mg Chlorhexidine Gluconate (Chlorhexidine Gluconate 0.12% 480 Ml) 15 ml MT TID [facility] Stop: 04/14/23 20:59 Last Admin: 04/09/23 09:25 Dose: 15 ml Enoxaparin Sodium (Enoxaparin Inj 40 Mg/0.4 Ml Syr) 40 mg SQ [facility] Stop: 05/07/23 08:59 Last Admin: 04/09/23 10:01 Dose: 40 mg Hydromorphone HCl (Hydromorphone Inj 1 Mg/Ml Syringe) 1 mg IV Q3H PRN PRN Reason: Pain Stop: 04/21/23 03:24 Last Admin: 04/09/23 01:57 Dose: 1 mg Promethazine HCl 12.5 mg/ (Sodium Chloride) 50.5 mls @ 202 mls/hr IV Q6H PRN PRN Reason: Nausea And Vomiting Stop: 05/06/23 22:36 Lisinopril (Lisinopril 10 Mg Tab) 10 mg PO [facility] Stop: 05/08/23 20:59 Last Admin: 04/08/23 20:08 Dose: 10 mg Lorazepam (Lorazepam 0.5 Mg Tab) 0.5 mg PO TID PRN PRN Reason: Anxiety Stop: 05/06/23 22:36 Last Admin: 04/08/23 20:08 Dose: 0.5 mg Oxycodone HCl (Oxycodone Hcl Ir 5 Mg Tab (Immediate Release)) 5 - 10 mg PO QID PRN PRN Reason: Pain Stop: 04/21/23 01:23 Last Admin: 04/09/23 09:25 Dose: 5 mg
[2023-04-09] MEDS ORDERED: AMOXICILLIN/CLAVULANATE 875 MG TAB PO SCH (17:00)
--- NOTE | 2023-04-09 17:02 | Discharge Summary ---
Date of Service April 09, 2023 Admission HPI Per Admitting Provider History obtained from patient, family, and records. Medical history significant for hypertension, hyperlipidemia, multiple sclerosis, medication noncompliance. Patient confined at [facility] in [place], [place] about 3 years ago for high blood pressure and TIA symptoms. Patient discharged on aspirin and lisinopril home medications. Patient took medications for about a month until she ran out. Unable to see family doctor or get prescriptions due to insurance issues. Few days ago, patient noted toothache on the right lower jaw. No fever, no chills. Unable to see dentist. Patient taking OTC NSAIDs at home for pain. Increased urinary frequency since yesterday with some back pain. No hematuria. She noticed a bad headache when she woke up early this morning to urinate. Patient woke up worsening right-sided headache. Dizziness described as lightheadedness. No chest pain, no SOB. Transient left lower extremity numbness. Patient also complaining of shooting pain on the left wrist for few months now without recollection of recent trauma. SBP noted to be 200s at home which is higher than usual 160s. Stroke alert called upon arrival at the ER. SBP 220-230s at the ER. IV labetalol administered at the ER. 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 Admission Exam Per Admitting Provider Physical Exam: GENERAL: Slightly uncomfortable, slightly anxious, obese, no respiratory distress SKIN: Normal color, warm HEENT: [place] palpebral conjunctivae, no ptosis, dry buccal mucosa, carious teeth, right lower jaw, negative trismus NECK : Supple, right jaw tenderness CHEST : CTA, no tenderness HEART : RRR, no obvious murmurs ABDOMEN: Some distention, nontender EXTREMITIES : Minimal LE swelling, no LE tenderness, no other conspicuous deformities noted NEUROLOGIC : Coherent, no facial asymmetry, no other gross focality Principal Diagnosis Right lower molar tooth infection, hypertensive urgency Discharge Exam Lying in bed very anxious Constitutional well developed, well nourished, + ill appearing and + obese Eyes PERRL, conjunctivae normal, anicteric sclerae ENMT external ear and nose normal, oropharynx normal Neck trachea midline, no thyromegaly Respiratory no respiratory distress Auscultation: lungs clear to auscultation bilaterally Cardiovascular Rate/Rhythm: regular rate and regular rhythm; not tachycardic Heart Sounds: normal S1 and normal S2; no murmur Extremities: no edema Gastrointestinal (Abdomen) Inspection/Auscultation: normal bowel sounds; abdomen not distended Percussion/Palpation: abdomen soft; abdomen nontender Neurologic normal touch/pain/proprioception and moves all extremities; no focal motor deficits Psychiatric A+Ox3, euthymic affect Lymphatic no cervical or axillary lymphadenopathy Discharge Data Allergies Allergy/AdvReac Type Severity Reaction Status Date / Time ciprofloxacin Allergy Intermediate Rash Verified 04/06/23 22:15 Consultations 04/06/23 23:53 Consult Neurology Routine 04/07/23 01:24 Consult Oromaxillofacial Surgery Routine Procedures Performed Operation Date: 04/08/23 12:15 Actual Procedures p Removal Teeth #30 and #31(Not Applicable) - Jesus Brasher, AJAY Ordered Studies 04/06/23 19:40 CT head/brain wo con Stat 04/06/23 20:23 CT angio head w con Stat CT angio neck with con Stat 04/06/23 22:17 CT Abd and Pelvis [CT abd pelvis wo con] Stat 04/07/23 01:54 MR brain wo con Routine 04/07/23 02:29 CT facial bones wo con Urgent Hospital Course (1) Hypertensive emergency: Precipitated by odontogenic infection and complicated UTI, no sepsis for now OTC NSAID intake hx medical noncompliance. Infected right lower molar teeth Has been started on intravenous Unasyn Appreciate orofacial surgery input and recommendation We will keep her n.p.o. tonight for possible molar extraction tomorrow We will have her right lower molar tooth extraction this afternoon Status post extraction of teeth #30 on 31 on 04/08/2023 Complaining of pain not being controlled with NSAIDs and or Tylenol Will try small dose of narcotic pain medications for a day or 2 She will be given Augmentin for the next 7 days Strongly advised to have follow-up appointment with her PCP Recurrent TIA secondary to uncontrolled blood pressure History of multiple sclerosis as per records LLE numbness currently resolved. Aspirin and statin Rx for possible TIA as per [facility] neurologist recommendation. MRI has been unremarkable Appreciate neurology input and recommendation No more neurological symptoms Hypertensive emergency Received intravenous labetalol and started on oral lisinopril Blood pressure remains at the upper and at 150/81 We will continue current medication Blood pressure was noted to be very high this morning and received additional dose of lisinopril and lisinopril dose has been increased from 5 to 10 mg from tonight Likely discharge tomorrow following tooth extraction Blood pressure remains on the upper side at 173/83 We will continue lisinopril 10 mg and was advised to have follow-up with primary care doctor Hyperlipidemia, not on statin medications Left wrist pain possible neuropathy rule out bony pathology Hyperglycemia rule out DM PCU Careful lowering of blood pressure. Initiate prior lisinopril Rx Check hemoglobin A1c -5.8 DVT prophylaxis with Lovenox subcu Full code Discharge home this afternoon Total Time Total Time Spent Total Time Spent (In Minutes): 35 minutes Discharge Plan Discharge Items Patient Disposition: Home - Self-Care Reason For Visit: HTN CRISIS Discharge Diagnosis: Right lower molar tooth infection, hypertensive urgency Condition on Discharge: Fair Activity: Resume your previous activity Non-emergency contact: Primary Care Provider Call non-emergency contact if: you have any medication questions and your symptoms worsen Follow-up/Referrals: PCP,NO [Primary Care Provider] - (Please make an appointment with your PCP within 7 days) Diet: Regular Addtl Attending Provider Instructions: Please finish the course of antibiotic as advised Try Advil and/or Tylenol to control pain Try to use less of narcotic pain medications avoid complications such as confusion, constipation,drowsiness and addiction Pending Studies at Discharge: No Stand-Alone Forms: [employer], Smoking Cessation Medications and DC Order Prescriptions: New atorvastatin 40 mg Tablet 40 mg PO HS Qty: 30 0RF aspirin 81 mg Tablet,Delayed Release (Dr/Ec) 81 mg PO QAM Qty: 30 0RF lisinopril 10 mg Tablet 10 mg PO HS Qty: 30 0RF amoxicillin-pot clavulanate 875-125 mg Tablet 1 tab PO BIDM Qty: 14 0RF oxycodone 5 mg Tablet 5 mg PO Q6H PRN (Reason: pain) Qty: 12 0RF Continued acetaminophen [Tylenol Extra Strength] 500 mg Tablet 1,000 mg PO DIRECTED PRN (Reason: Pain) ibuprofen 200 mg Tablet 800 mg PO DIRECTED PRN (Reason: Pain) Discharge Orders: Discharge Order (Routine); Ordered 04/09/23 Ordered By: Brittany Fragoso Admission Data Admit Date/Time: 04/06/23 22:28 Attending Provider: Brittany Fragoso Admit Provider: Zak Merritt Primary Care Provider: PCP,NO Other Providers: Mark Mazariegos ; Jesus Brasher Other Interventions: Discharge Summary Assessment (RN) Last Done: 04/09/23 14:30
--- NOTE | 2023-04-10 21:43 | Electrocardiogram Report ---
Test Reason : Blood Pressure : / mmHG Vent. Rate : 090 BPM Atrial Rate : 090 BPM P-R Int : 182 ms QRS Dur : 094 ms QT Int : 376 ms P-R-T Axes : 051 003 046 degrees QTc Int : 459 ms Normal sinus rhythm Possible Left atrial enlargement Borderline ECG No previous ECGs available Confirmed by Riaz Delarosa ([id number]) on 04/10/2023 9:42:58 PM Referred By: REFERRED SELF Confirmed By:Riaz Delarosa
--- NOTE | 2023-04-10 21:58 | Electrocardiogram Report ---
Test Reason : Blood Pressure : / mmHG Vent. Rate : 096 BPM Atrial Rate : 096 BPM P-R Int : 206 ms QRS Dur : 092 ms QT Int : 388 ms P-R-T Axes : 049 005 020 degrees QTc Int : 490 ms Normal sinus rhythm Possible Left atrial enlargement Possible Anterior infarct , age undetermined Abnormal ECG When compared with ECG of 06-APR-2023 19:43, No significant change Confirmed by Riaz Delarosa ([id number]) on 04/10/2023 9:58:12 PM Referred By: REFERRED SELF Confirmed By:Riaz Delarosa
--- OUTSIDE RECORDS SUMMARY | 2023-04-13 10:33 | External Medical Summary | Continuity of Care Document ---
Author Name Unknown Organization [facility] Address [address] [place] [id number] Encounter [facility] [id number] Date(s): 12/02/20 - 12/03/[address] [id number] Encounter Diagnosis Posterior vitreous detachment(Discharge Diagnosis) - 12/03/20 Discharge Disposition: Home or Self Care Attending Physician: MD Sherie, Yovani Hebert Allergies, Adverse Reactions, Alerts Substance Reaction Severity Status Cipro Hives Active Functional Status 12/02/20 Neurological Symptoms Visual changes Level of Consciousness Neuro Alert Speech Pattern Clear 12/02/20 History of Fall in Last 3 Months Pereira N o Presence of Secondary Diagnosis Pereira No Use of Ambulatory Aid Pereira None/bedrest /nurse assist IV/Heparin Lock Fall Risk Pereira No Gait/Transferring Fall Risk Pereira Normal /bedrest/immobile Mental Status Fall Risk Pereira Oriented t o own ability Pereira Fall Risk Score 0 Pereira Fall Risk No Risk Medications albuterol 90 mcg/inh inhalation powder Start: 04/18/16 1:37:00 EDT Start Date: 04/18/16 Status: Ordered Darvocet-N 100 oral tablet See Instructions, Refills: 0, Start: 06/28/08 9:34:50 Start Date: 06/28/08 Status: Ordered ibuprofen 600 mg oral tablet Start: 04/04/20 16:01:00 EDT, 1 tab, PO, ONCE Start Date: 04/04/20 Status: Ordered LORazepam Start: 04/18/16 1:37:00 EDT Start Date: 04/18/16 Status: Ordered ondansetron Start: 04/18/16 1:37:00 EDT Start Date: 04/18/16 Status: Ordered oxycodone PO, Refills: 0, Start: 06/08/08 8:47:40 Start Date: 06/08/08 Status: Ordered Skelaxin 800 mg oral tablet Start: 04/09/19 5:45:00 EDT, 1 tab, PO, tid, Disp# 15 tab Start Date: 04/09/19 Stop Date: 04/14/19 Status: Ordered traMADol Start: 04/18/16 1:36:00 EDT Start Date: 04/18/16 Status: Ordered Xanax Start: 04/18/16 1:37:00 EDT Start Date: 04/18/16 Status: Ordered Problem List Condition Effective Dates Status Health Status Inform ant Beer(Confirmed) 1 Active section(Confirmed) 2 Active Hernia repair(Confirmed) Active LP - Lumbar puncture(Confirmed) 06/26/08 Active 1occasionally 2x3 Diagnosis Diagnosis Type Effective Dates Health Status Clinical Service Informant Posterior vitreous detachment Discharge Diagnosis 12/03/20 Non-Specified Vital Signs Most recent to oldest [Reference Range]: 1 2 Height 165.1 cm (12/02/20 10:51 PM) Patient Weight 74.7 kg (12/02/20 10:51 PM) Body Mass Index 27.4 kg/m2 (12/02/20 10:51 PM) Temperature [36.5-37.9 DegC] 36.9 DegC (12/03/20 1:10 AM) 36.6 DegC (12/02/20 10:52 PM) Heart Rate 86 bpm (12/03/20 1:10 AM) 79 bpm (12/02/20 10:52 PM) Respiratory Rate 20 br/min (12/03/20 1:10 AM) 18 br/min (12/02/20 10:52 PM) Blood Pressure 140/77mmHg (12/03/20 1:10 AM) 150/99mmHg (12/02/20 10:52 PM) Social History Social History Type Response Smoking Status Never smoked cigaret rosanna Sex Female
--- NOTE | 2023-04-15 21:45 | Operative Report ---
PG Post Operative Report Pre & Post Diagnosis Operation Date: 04/08/23 12:15 Pre-Op Diagnosis: Dental abscess Post-Op Diagnosis: Dental abscess I identified the patient and participated in the time-out.: Yes Procedure Operation Date: 04/08/23 12:15 Actual Procedures p Removal Teeth #30 and #31(Not Applicable) - Jesus Brasher DMD D7210 x 2 for 30,31 CPT 39304 Surgeon Jesus Brasher DMD Media [employer] none Estimated Blood Loss 2 Findings Consistent with Post-Op Diagnosis infection lower right side associated with carious abscessed # 30,31 D7210 x 2 for 30,31 CPT 22464 Specimens none Drains none Anesthesia Type MAC Complications none Indications infection, swelling, fractured teeth, acute pain Description of Procedure D7210 x 2 for 30,31 CPT 00825 Actual Procedures p Incision and Drainage right vestibular Abscess; Removal of Teeth 30,31 (Not Applicable) - Jesus Brasher DMD Once cleared for surgery general anesthesia was achieved, the eyes were protected by the anesthesia dept criteria. A time out was take for patient ID, antibiotics, equipment and position v erification once all agreed the procedure began. Local anesthesia using Marcaine with a vasoconstrictor ( 1.8 ml per site) given into right inferior alveolar nerve A throat pack was placed after the oral cavity was irrigated with saline. Once a surgical level of anesthesia was obtained and the local anesthesia was given time for the blocks the surgery was started. I turned my attention to the infection which was located in the lower right vestibular area. swelling associated with tooth # 30,31 with acute pain ( see CT scan report) Incision and Drainage Using a 15 blade an incision was made in the swollen vestibular space right side. Once the incision was made a lot of pus extruded from the site. A curved hemostat was carefully placed into the infected space along the medial side of the lower jaw. Some further drainage was now allowed to escape. I palpated the submandibular and cheek area and no further drainage was expressed. The area was irrigated with at least 100 ml of NS solution. I now turned my attention to remove the 30,31 teeth Lower # 30,31 (D7210 surgical extraction 30,31) The full thick Muco-periosteal flap was made on the facial aspect from # 28-32. The flap was reflected to expose the the subperiosteal space the bone adjacent to the lower right molars. The rongeur was used to remove bone, the tooth was removed with a 301 elevator, the mental nerve was intact, there was a large amount of granulation tissue on the apex and some more pus that was expressed. I inspected the sites to insure all bleeding was controlled. I removed the throat pack and suctioned the throat. Bilateral gauze pressure dressings were placed. All instrument and sponge count was correct. the patient was allowed to awake from the anesthesia. Once full awake the anesthesia tube was removed and the patient was taken to the recovery room with all vital sign stable. The patient tolerated the surgery very well. The patient lives near [place] and will get dental/medical follow up there, Rx and instructions will be given upon discharge. I attest to the content of the Intraoperative Record and any orders documented therein. Any exceptions are noted below.
== END 2023-04-09 15:42 | disposition home or self-care (01) ==
LOC: 4W 19:35 → ED 19:35 → 4W 23:36

== ENCOUNTER 2025-07-06 13:38 | Observation (INO) ==
--- NOTE | 2025-07-06 13:52 | Emergency Department Note ---
Impression & Plan Abdominal pain, ROBY (acute kidney injury), BRBPR (bright red blood per rectum) ED Provider Note NAME: TED VELASQUEZ AGE: 54 SEX: F : 1970 ARRIVES VIA: Walk-In INFORMANT: The patient herself. ED PROVIDER(S): Juliann Morales PA-C, [Wilder Bautista, DO] CHIEF COMPLAINT: Abdominal pain HISTORY OF PRESENTING ILLNESS: The patient is a 54-year-old female with a PMH HTN and MS who presents to the emergency department due to right upper quadrant abdominal pain and flank pain that has worsened over the last couple of hours. She reports intermittent abdominal pain for the last couple of weeks however was not bothering her enough for evaluation. She denies fever but does report chills. 1 week ago she had an episode of vomiting that she describes as "black" and that during one of her bowel movements yesterday she noticed a small amount of bright red blood. She denies any other episodes of vomiting, coffee-ground emesis, or dark stools. She denies urinary symptoms however feels as if she is not able to empty her bladder the full way. Denies pain with urination, blood in her urine, urgency, and frequency. She recently started Zepbound 2 weeks ago. Denies chest pain, shortness of breath, URI symptoms, constipation, diarrhea, recent travel, sick contacts. No history of kidney stones or abdominal surgery. REVIEW OF SYSTEMS: See HPI for pertinent positives and pertinent negatives. ALLERGIES: Ciprofloxacin MEDICATIONS: See below PAST MEDICAL HISTORY: See below PHYSICAL EXAM: VITALS: Vitals are noted on the nurses note and reviewed by myself. Vital signs stable. GENERAL: 54-year-old female, lying uncomfortably in bed, in no acute distress, nondiaphoretic, well-developed well-nourished. SKIN: Capillary refill less than 2 seconds. HEENT: Normocephalic. PERRLA. EOMI. Nares patent. Mucous membranes moist. Neck is supple without nuchal rigidity. HEART: Regular rate and rhythm without murmurs gallops or rubs. LUNGS: CTA BL without wheezes, rales or rhonchi. No retractions or accessory muscle use. ABDOMEN: Positive BS x 4. Soft, mild diffuse tenderness that is worst in the RUQ/right flank, without masses or organomegaly. No guarding or rebound tenderness. MUSCULOSKELETAL: No gross musculoskeletal defects. NEURO: Patient was alert and oriented to person place and time. No focal neurological deficits. DIFFERENTIAL DIAGNOSIS: Differential diagnosis includes appendicitis, diverticulitis, bowel obstruction, inflammatory bowel disease, renal colic, PUD, biliary pathology, pancreatitis, mesenteric ischemia, aortic pathology, infection, genitourinary, UTI, perforated viscus, among others. ED COURSE AND MEDICAL DECISION MAKING: MEDICATIONS GIVEN: 1 L normal saline, Tylenol 1000 mg IV, Zofran 4 mg IV, 1 L normal saline, morphine 2 mg IV MONITOR: Continuous court monitor: Order was placed for continuous court monitor. INTERPRETATION OF LABS: I interpreted the labs with full lab results as below in the lab section of this note. Pertinent lab results discussed in the MDM section below. INTERPRETATION OF IMAGING: I informally interpreted the patient's CT abdomen pelvis which does not show evidence of obvious acute cholecystitis, pyelonephritis, hydronephrosis, or nephrolithiasis and reviewed formal report below. CONSULTATIONS: On-call [facility] - Presented the patient to the provider. Right upper quadrant abdominal pain and flank pain with an episode of vomiting a week ago. Reports bright red blood in stool. Patient has started Zepbound within the last [address] imaging unremarkable. Labs show ROBY. Patient was given 2 L fluids and pain management but on reevaluation is still having discomfort. They are agreeable to evaluate the patient. MDM SUMMARY: I evaluated the 54-year-old female who presents to the emergency department due to abdominal pain, chills, and nausea. See HPI and PE above. Patient's vitals are stable. She is in a significant amount of discomfort initially 1 L normal saline, Tylenol, and Zofran given. Labs obtained showing no leukocytosis. Hemodynamically stable. Mild hyponatremia 134. No other electrolyte abnormality. ROBY. BUN elevated 42 creatinine elevated 2.69. Fluids given. Normal LFTs. Troponin 5.7. Lipase 62. negative. Urinalysis obtained showing trace ketones and 1+ leukocyte esterase. Sample is contaminated and patient denies urinary symptoms. Bladder scan performed showing only 10 remaining after urine sample. CT abdomen and pelvis obtained showing no acute findings. On reevaluation patient's pain is mildly improved however is still persistent. Additional 1 L normal saline and morphine given. I did have a long discussion with the patient regarding her discomfort which may be secondary to starting Zepbound injections and dehydration however due to new onset ROBY the patient was admitted for further workup and management. She is agreeable to the outlined treatment plan and all questions answered. Consultation with on-call [facility] can be seen in detail above. They agreed to evaluate the patient. The patient was admitted in stable condition. DIAGNOSIS: Abdominal pain, ROBY, prevent blood per rectum The chart was completed utilizing [employer] Speech voice recognition software. Grammatical errors, random word insertions, pronoun errors, and incomplete sentences are an occasional consequence of this system due to software limitations, ambient noise, and hardware issues. Any formal questions or concerns about the content, text, or information contained within the body of this dictation should be directly addressed to the provider for clarification. TREATMENT PLAN/DISCHARGE INSTRUCTIONS: The patient was admitted to medicine. See that note for further workup and treatment plan. Past Med/Surg History Problem List (Updated 07/06/25 @ 19:00 by Juliann Morales PA-C) ROBY (acute kidney injury) (Acute) Abdominal pain (Acute) Nausea BRBPR (bright red blood per rectum) (Acute) RUQ abdominal pain ROBY (acute kidney injury) Dental abscess Myalgia Arthralgia of multiple joints Weakness of left leg Hx of multiple sclerosis (Acute) Hypertensive emergency (Acute) Stroke-like symptoms (Acute) Medical History Hypothyroidism Obesity (BMI 30-39.9) HTN (hypertension), benign CVA (cerebral vascular accident) Surgical History History of hernia repair H/O section Family History Mother , age 73 of a stroke Stroke Father , age 50 of an NC Myocardial infarction Social History Smoking Status: Never smoker Hx Alcohol Use: No Hx Substance Use: No Preferred Language: Cymraes Communication Ability: Effective Caustic Room Attendant Required: No Beliefs That Will Affect Care: None Current Living Situation: Spouse 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 [employer] Other Information That Helps Us Care for You: No Feels Safe at Home: Yes Safety Concerns: Feels Safe At This Time Assistive Devices: Glasses Allergies Allergies Allergy/AdvReac Type Severity Reaction Status Date / Time ciprofloxacin Allergy Intermediate Rash Verified 04/06/23 22:15 Home Meds Home Medications Medication Instructions Recorded Confirmed acetaminophen 500 mg tablet 1,000 mg PO DIRECTED PRN Pain 04/06/23 07/06/25 (Tylenol Extra Strength) alprazolam 0.5 mg tablet 0.5 mg PO DAILY PRN Anxiety 07/06/25 07/06/25 aspirin 81 mg tablet,delayed 0 mg PO QAM 07/06/25 07/06/25 release levothyroxine 50 mcg tablet 50 mcg PO DAILY 07/06/25 07/06/25 lisinopril 40 mg tablet 40 mg PO HS 07/06/25 07/06/25 nitroglycerin 0.4 mg sublingual 0.4 mg sublingual DIRECTED PRN 07/06/25 07/06/25 tablet Increased Heart Rate tirzepatide (weight loss) 2.5 2.5 mg subcut WK 07/06/25 07/06/25 mg/0.5 mL subcutaneous pen injector (Zepbound) Previous Rx's Medication Instructions Recorded amlodipine 5 mg tablet 5 mg PO DAILY #30 tabs 07/07/25 pantoprazole 40 mg tablet,delayed 40 mg PO BID #60 tabs 07/07/25 release Results & Data (ED) Vital Signs Vital Signs - 24 hr 07/06/25 13:42 07/06/25 13:58 07/06/25 14:08 Temperature 36.8 C Temperature Source Temporal Artery Scan Pulse Rate 111 H Pulse Rate [Apical] 98 H Respiratory Rate 20 18 Respiratory Effort / Characteristics Blood Pressure 110/70 Blood Pressure [Left Arm] 118/74 Blood Pressure Mean 83 Blood Pressure Mean [Left Arm] 88 Pulse Oximetry 99 97 97 Oxygen Delivery Method Room Air Room Air Room Air Sepsis New/Unexplained Change in Mental Status N/A Sepsis Action Taken by Nursing No Action Required 07/06/25 14:13 07/06/25 17:16 07/06/25 18:56 Temperature Temperature Source Pulse Rate 93 H 94 H Pulse Rate [Apical] 90 Respiratory Rate 16 Respiratory Effort / Characteristics Non-Labored Spontaneous Blood Pressure Blood Pressure [Left Arm] 118/74 Blood Pressure Mean Blood Pressure Mean [Left Arm] 88 Pulse Oximetry 98 Oxygen Delivery Method Room Air Sepsis New/Unexplained Change in Mental Status Sepsis Action Taken by Nursing Laboratory Data 07/07/25 05:42 07/07/25 13:46 Lab Results 07/06/25 07/06/25 Range/Units 13:55 14:00 WBC 9.96 (4.8-10.8) K/ul RBC 4.00 L (4.20-5.40) M/uL Hgb 12.0 (12.0-16.0) g/dL Hct 35.3 L (37.0-47.0) % MCV 88.3 (80.0-100.0) fL MCH 30.0 (25.0-34.0) pg MCHC 34.0 (32.0-36.0) g/dL RDW Std Deviation 43.2 (36.4-46.3) fL RDW Coeff of Claudia 13.4 (11.5-14.5) % Plt Count 408 H (130-400) K/uL MPV 9.4 (9.4-12.4) fL Immature Gran % (Auto) 0.4 % Neut % (Auto) 63.5 % Lymph % (Auto) 28.9 % [place] % (Auto) 5.2 % Eos % (Auto) 1.5 % Baso % (Auto) 0.5 % Neut # (Auto) 6.32 (1.40-6.50) K/uL Lymph # (Auto) 2.88 (1.20-3.40) K/uL [place] # (Auto) 0.52 (0.11-0.59) K/uL Eos # (Auto) 0.15 (0.00-0.50) K/uL Baso # (Auto) 0.05 (0.00-0.20) K/uL Immature Gran # (Auto) 0.04 (0.01-0.20) K/uL Sodium 134 L (136-145) mmol/L Potassium 4.1 (3.5-5.1) mmol/L Chloride 98 (98-107) mmol/L Carbon Dioxide 24 (21-32) mmol/L Anion Gap 12 H (3-11) BUN 42 H (6-23) mg/dl Creatinine 2.69 H (0.6-1.2) mg/dl Est Cr Clr Drug Dosing 25.3 ml/min eGFR 20.29 BUN/Creatinine Ratio 15.6 (10-20) Glucose 85 (70-99(Fasting)) mg/dl Calcium 9.6 (8.6-10.3) mg/dl Total Bilirubin 0.5 (0.2-1.0) mg/dl AST 12 L (13-39) U/L ALT 11 (7-52) U/L Alkaline Phosphatase 103 (34-104) U/L Troponin I High Sens 5.7 (0-14) pg/ml Total Protein 8.3 (6.0-8.3) gm/dl Albumin 4.2 (3.4-5.0) gm/dl Globulin 4.1 H (2.5-4.0) gm/dl Albumin/Globulin Ratio 1.0 (0.9-2) Lipase 62 (11-82) U/L HCG, Qual Negative (Negative) Urine Color Yellow Urine Appearance Clear (Clear) Urine pH 5.0 (4.5-7.5) Ur Specific [place] 1.020 (1.000-1.030) Urine Protein Trace H (Negative) Urine Glucose (UA) Negative (Negative) Urine Ketones Trace H (Negative) Urine Blood Negative (Negative) Urine Nitrite Negative (Negative) Urine Bilirubin Negative (Negative) Urine Urobilinogen Negative (Negative) Ur Leukocyte Esterase 1+ H (Negative) Urine WBC (Auto) 0-5 (0-5) /hpf Urine RBC (Auto) 0-2 (0-2) /hpf U Hyaline Cast (Auto) >20 H (0-2) /lpf U Epithel Cells (Auto) 11-20 H (0-2) /hpf Urine Bacteria (Auto) 1+ H (None Seen) Hyaline Casts Present A (None Presnt) /lpf Granular Casts Present A (None Prsent) /lpf Urine Comment Administered Medications Discontinued Medications Acetaminophen (Acetaminophen 325 Mg Tab) 650 mg PO Q4H PRN PRN Reason: pain/fever Stop: 08/05/25 17:13 Last Admin: 07/07/25 13:32 Dose: 650 mg Documented By: Admin: 07/06/25 22:47 Dose: 650 mg Documented By: JESSICA Alprazolam (Alprazolam 0.5 Mg Tablet) 0.5 mg PO DAILY PRN PRN Reason: Anxiety Stop: 08/05/25 20:09 Last Admin: 07/06/25 22:47 Dose: 0.5 mg Documented By: JESSICA Atorvastatin Calcium (Atorvastatin 40 Mg Tab) 40 mg PO HS BRENDA Stop: 08/05/25 20:59 Last Admin: 07/06/25 20:40 Dose: 40 mg Documented By: JESSICA Duloxetine HCl (Duloxetine Hcl 30 Mg Cap) 30 mg PO QAM BRENDA Stop: 08/06/25 08:59 Last Admin: 07/07/25 08:35 Dose: 30 mg Documented By: MARGARET Sodium Chloride (Nss) 1,000 mls @ 999 mls/hr IV .Q1H1M ONE Stop: 07/06/25 15:04 Last Infusion: 07/06/25 16:31 Dose: Infused Documented By: Admin: 07/06/25 14:13 Dose: 999 mls/hr Documented By: JACQUI Acetaminophen (Ofirmev) 1,000 mg in 100 mls @ 400 mls/hr IV NOW STA Stop: 07/06/25 14:18 Last Infusion: 07/06/25 16:31 Dose: Infused Documented By: Admin: 07/06/25 14:14 Dose: 400 mls/hr Documented By: JACQUI Sodium Chloride (Nss) 1,000 mls @ 999 mls/hr IV .Q1H1M ONE Stop: 07/06/25 17:18 Last Infusion: 07/06/25 19:21 Dose: Infused Documented By: Admin: 07/06/25 16:28 Dose: 999 mls/hr Documented By: SUJATA Pantoprazole Sodium (Protonix) 40 mg in 10 mls @ 5 mls/min IV BID BRENDA Stop: 08/05/25 17:19 Last Admin: 07/07/25 09:14 Dose: 5 mls/min Documented By: Admin: 07/06/25 17:59 Dose: 5 mls/min Documented By: SUJATA Lactated Ringer's (Lr) 1,000 mls @ 125 mls/hr IV .Q8H BRENDA Stop: 07/09/25 20:09 Last Admin: 07/07/25 12:37 Dose: 125 mls/hr Documented By: Infusion: 07/07/25 12:31 Dose: Infused Documented By: Admin: 07/07/25 04:31 Dose: 125 mls/hr Documented By: Infusion: 07/07/25 04:25 Dose: Infused Documented By: Admin: 07/06/25 20:25 Dose: 125 mls/hr Documented By: JESSICA Ioversol (Optiray 320 100ml) 90 ml IV ONCE ONE Stop: 07/06/25 15:14 Last Admin: 07/06/25 15:14 Dose: 90 ml Documented By: LIZ Levothyroxine Sodium (Levothyroxine Sodium 50 Mcg Tablet) 50 mcg PO DAILYBB BRENDA Stop: 08/06/25 06:29 Last Admin: 07/07/25 05:54 Dose: 50 mcg Documented By: JESSICA Morphine Sulfate (Morphine Sulfate 2 Mg/Ml Carp) 2 mg IV NOW STA Stop: 07/06/25 16:20 Last Admin: 07/06/25 16:28 Dose: 2 mg Documented By: SUJATA Morphine Sulfate (Morphine Sulfate 2 Mg/Ml Carp) 2 mg IV NOW STA Stop: 07/06/25 20:33 Last Admin: 07/06/25 20:40 Dose: 2 mg Documented By: JESSICA Ondansetron HCl (Ondansetron Inj 2 Mg/Ml 2 Ml Vial) 4 mg IV NOW STA Stop: 07/06/25 14:05 Last Admin: 07/06/25 14:14 Dose: 4 mg Documented By: JACQUI Polyethylene Glycol (Polyethylene (Miralax) 17 Gm Pack) 17 gm PO TID [facility] Stop: 08/05/25 20:59 Last Admin: 07/07/25 14:27 Dose: Not Given Documented By: Admin: 07/07/25 08:35 Dose: 17 gm Documented By: Admin: 07/06/25 20:40 Dose: 17 gm Documented By: JESSICA Pregabalin (Pregabalin 50 Mg Cap) 50 mg PO TID BRENDA Stop: 08/05/25 20:59 Last Admin: 07/07/25 14:27 Dose: 50 mg Documented By: Admin: 07/07/25 08:35 Dose: 50 mg Documented By: Admin: 07/06/25 20:40 Dose: 50 mg Documented By: JESSICA Trazodone HCl (Trazodone Hcl 50 Mg Tab) 50 mg PO HS PRN PRN Reason: insomnia Stop: 08/05/25 20:09 Last Admin: 07/07/25 01:22 Dose: 50 mg Documented By: JESSICA Imaging Data Radiologist's Impression: Abdomen/Pelvis CT 07/06/25 14:[address] WITH IV CONTRAST CT DOSE: 1545.86 mGy.cm HISTORY: RUQ/flank pain, nausea TECHNIQUE: Multiaxial CT images of the abdomen and pelvis were performed following the IV administration of 90 cc of Optiray, A dose lowering technique was utilized adhering to the principles of ALARA. COMPARISON STUDY: 04/06/2023 FINDINGS: ABDOMEN: Liver, gallbladder, spleen, pancreas, and adrenal glands are unremarkable. Kidneys show no hydronephrosis or calculi. There are mild atherosclerotic calcifications. No abdominal aortic aneurysm. Pelvis: Uterus and adnexal regions are grossly unremarkable. Urinary bladder is nondistended. There is mild sigmoid diverticulosis. No acute diverticulitis. Normal appendix. No bowel inflammation or obstruction seen. No free fluid or free air. No enlarged adenopathy. Osseous structures: There is mild to moderate lumbar degenerative disc disease. No acute osseous findings. IMPRESSION: No acute findings. ACT 112: Negative or not required by law. The above report was generated using voice recognition software. It may contain grammatical, syntax or spelling errors. Electronically signed by: John Hayes M.D. 07/06/2025 3:38 PM Discharge Plan Visit Data Chief Complaint: Abdominal Pain Stated Complaint: ABD PAIN ED Provider: Wilder Bautista ED Midlevel Provider: Juliann Morales Discharge Problem: Abdominal pain, ROBY (acute kidney injury), BRBPR (bright red blood per rectum) Patient Disposition: Admitted As Inpatient Condition: Good Discharge Instructions Interventions: ED Discharge Assessment Last Done: 07/06/25 19:28 Discharge Problem: Abdominal pain Qualifiers: Abdominal location: right upper quadrant Qualified Code(s): R10.11 - Right upper quadrant pain
[2025-07-06] MEDS: SODIUM CHLORIDE 0.9% 1,000 ML IV ONE ×2 (14:13→16:28)
[2025-07-06] MEDS: ACETAMINOPHEN 1,000 MG/100 ML VIAL IV STA (14:14)
[2025-07-06] MEDS: ONDANSETRON INJ 2 MG/ML 2 ML VIAL IV STA (14:14)
[2025-07-06 14:28] LABS: Hematocrit (blood only) 35.3 % (37.0-47.0); Hemoglobin 12.0 g/dL (12.0-16.0); Immature Granulocytes # (auto) 0.04 K/uL (0.01-0.20); Immature Granulocytes % (auto) 0.4 %; Mean Corpuscular Hemoglobin 30.0 pg (25.0-34.0); Mean Corpuscular Volume 88.3 fL (80.0-100.0); Platelet Count 408 K/uL (130-400); RDW Standard Deviation 43.2 fL (36.4-46.3); Red Blood Count 4.00 M/uL (4.20-5.40); White Blood Count 9.96 K/ul (4.8-10.8)
[2025-07-06 14:35] LABS: Appearance Urine Clear (Clear); Bacteria Urine Automated 1+ (None Seen); Cast Urine Automated >20 /lpf (0-2); Glucose Urine UA Negative (Negative); RBC Urine Automated 0-2 /hpf (0-2); WBC Urine Automated 0-5 /hpf (0-5)
[2025-07-06 14:43] LABS: Pregnancy Test, Serum Negative (Negative)
[2025-07-06 14:44] LABS: Alanine Aminotransferase 11.0 U/L (7-52); Albumin Globulin Ratio 1.0 (0.9-2); Albumin Level 4.2 gm/dl (3.4-5.0); Alkaline Phosphatase 103.0 U/L (34-104); Anion Gap 12.0 (3-11); Bilirubin,Total 0.5 mg/dl (0.2-1.0); Blood Urea Nitrogen 42.0 mg/dl (6-23); Calcium 9.6 mg/dl (8.6-10.3); Carbon Dioxide 24.0 mmol/L (21-32); Chloride 98.0 mmol/L (98-107); Creatinine Clr Calc Pharmacy 25.3 ml/min; Globulin 4.1 gm/dl (2.5-4.0); Glucose 85.0 mg/dl (70-99(Fasting)); Lipase 62.0 U/L (11-82); Potassium 4.1 mmol/L (3.5-5.1); Sodium 134.0 mmol/L (136-145); Total Protein 8.3 gm/dl (6.0-8.3)
[2025-07-06] MEDS: OPTIRAY 320 100ml IV ONE (15:14)
--- NOTE | 2025-07-06 15:41 | CT Scan Report ---
ABDOMEN AND PELVIS CT WITH IV CONTRAST CT DOSE: 1545.86 mGy.cm HISTORY: RUQ/flank pain, nausea TECHNIQUE: Multiaxial CT images of the abdomen and pelvis were performed following the IV administrat ion of 90 cc of Optiray, A dose lowering technique was utilized adhering to the principles of ALARA. COMPARISON STUDY: 04/06/2023 FINDINGS: ABDOMEN: Liver, gallbladder, spleen, pancreas, and adrenal glands are unremarkable. Kidneys show no h ydronephrosis or calculi. There are mild atherosclerotic calcifications. No abdominal aortic aneurysm . Pelvis: Uterus and adnexal regions are grossly unremarkable. Urinary bladder is nondistended. There i s mild sigmoid diverticulosis. No acute diverticulitis. Normal appendix. No bowel inflammation or obs truction seen. No free fluid or free air. No enlarged adenopathy. Osseous structures: There is mild to moderate lumbar degenerative disc disease. No acute osseous find ings. IMPRESSION: No acute findings. ACT 112: Negative or not required by law. The above report was generated using voice recognition software. It may contain grammatical, syntax o r spelling errors. Electronically signed by: John Hayes M.D. 07/06/2025 3:38 PM
[2025-07-06] MEDS: MoRPHine SULFATE 2 MG/ML CARP IV STA ×2 (16:28→20:40)
[2025-07-06] MEDS ORDERED: MELATONIN 3 MG TAB PO PRN (17:14)
[2025-07-06] MEDS ORDERED: ONDANSETRON INJ 2 MG/ML 2 ML VIAL IV PRN (17:14)
--- NOTE | 2025-07-06 17:22 | History & Physical Report ---
"Date of Service July 06, 2025 Assessment & Plan (1) ROBY (acute kidney injury): (2) RUQ abdominal pain: (3) BRBPR (bright red blood per rectum): (4) Nausea: Plan This is a 54 year old female with PMHx of myalgias, HTN, HLD, hypothyroidism, CVA, chronic lower back pain, anxiety, and obesity who presented to the ED on 07/06/2025 for abdominal pain, nausea/vomiting with black vomit. While in the ED, she was found to have a negative CTAP. Her CBC was without leukocytosis. BMP was significant for a creatinine of 2.69/BUN 42. Her UA was negative for infection. She was given 2L of IVF, Zofran, Tylenol, and Morphine in the ED. She did report improvement of pain after morphine. #ROBY per pt, baseline creatinine is WNL. w/ ~2 weeks of decrease PO intake secondary to starting Zepbound. Recently started Mobic & HCTZ, on Lisinopril for HTN Creatinine 2.69/BUN 42 on admission, likely combo of new medications + poor PO intake driving ROBY Hold Lisinopril, Mobic, & HCTZ s/p 2L IVF in ED, continue LR @125ml/hr maintenance Renally dose medications where appropriate, avoid nephrotoxic agents. Repeat BMP in AM #Abdominal pain | Nausea | BRBPR w/ ongoing RUQ abdominal pain, nausea, occasional vomiting, and occasional BRBPR w/ wiping on toilet paper - symptoms worsened since beginning GLP-1 CTAP neg, no leukocytosis on CBC, LFTs WNL; + Dela Cruz's sign on PE, order RUQ US to rule out gallbladder etiology. suspect underlying constipation, only moves her bowels q2-3 days. - start Miralax TID while inpatient. Consider bowel regimen on discharge. BRBPR is only occasional, consider outpatient CN closer to her home town. Avoid narcotics in the setting of constipation, can use Tylenol prn for pain. Start IV PPI BID; Zofran prn for N/V. #HTN/history of CVA Home meds include HCTZ & Lisinopril - hold in the setting of ROBY She previously was on baby aspirin but held it for recent back injections-hold off on restarting given GI bleeding Monitor BPs, normotensive at time of admission. #HLD - statin #Hypothyroidism - Synthroid, Check TSH in AM #Mental health - Duloxetine, Alprazolam prn, Trazodone prn #Neuropathy/chronic lower back pain- Lyrica. DVT prophylaxis: SCD's, encourage ambulation. Can hold chemical in the setting of BRBPR Code: full Case was discussed with Dr. Carolina at time of admission. History of Present Illness Chief Complaint: Abdominal pain, vomiting Primary Care Provider: NERY Jeramie Da Silva is a 54 year old female with PMHx of myalgias, HTN, HLD, hypothyroidism, CVA, chronic lower back pain, anxiety, and obesity who presented to the ED on 07/06/2025 for abdominal pain. Jane was seen & examined with her at bedside this evening. She reports that she started Zepbound ~ 2 weeks ago. She was having vague symptoms previously but they have since been exacerbated since starting Zepbound. She reports that she is only moving her bowels every 2-3 days. She occasionally has BRBPR on the toilet paper w/ wiping. She reports she had a small BM at 2am. Reports her RUQ abdominal pain is intermittent and when it does occur, it is severe in nature with radiation to her back. She reports she has a hx of back pain & has had spinal injections for back pain as well. She reports feeling nauseous and vomited black liquid twice in the last 3 days. She denies any CP or SOB. Denies any urinary issues. She does report that since starting Zepbound she has had minimal appetite and has not been eating/drinking much at home. She was also recently started on HCTZ for her hypertension. While in the ED, she was found to have a negative CTAP. Her CBC was without leukocytosis. BMP was significant for a creatinine of 2.69/BUN 42. Her UA was negative for infection. She was given 2L of IVF, Zofran, Tylenol, and Morphine in the ED. She did report improvement of pain after morphine. Code discussion did take place and she does confirm that she is a full code. Allergies Allergy/AdvReac Type Severity Reaction Status Date / Time ciprofloxacin Allergy Intermediate Rash Verified 04/06/23 22:15 Home Medications Medication Instructions Recorded Confirmed Type acetaminophen 500 mg tablet 1,000 mg PO DIRECTED PRN Pain 04/06/23 04/06/23 History (Tylenol Extra Strength) ibuprofen 200 mg tablet 800 mg PO DIRECTED PRN Pain 04/06/23 04/06/23 History amoxicillin 875 mg-potassium 1 tab PO BIDM #14 tabs 04/09/23 Rx clavulanate 125 mg tablet aspirin 81 mg tablet,delayed 81 mg PO QAM #30 tabs 04/09/23 Rx release atorvastatin 40 mg tablet 40 mg PO HS #30 tabs 04/09/23 Rx lisinopril 10 mg tablet 10 mg PO HS #30 tabs 04/09/23 Rx oxycodone 5 mg tablet 5 mg PO Q6H PRN pain #12 tabs 04/09/23 Rx Past Med/Surg History Problem List (Updated 07/06/25 @ 17:53 by Brea Carolina MD) Nausea BRBPR (bright red blood per rectum) RUQ abdominal pain ROBY (acute kidney injury) Dental abscess Myalgia Arthralgia of multiple joints Weakness of left leg Hx of multiple sclerosis (Acute) Hypertensive emergency (Acute) Stroke-like symptoms (Acute) Medical History (Updated 07/06/25 @ 17:53 by Brea Carolina MD) Hypothyroidism Obesity (BMI 30-39.9) HTN (hypertension), benign CVA (cerebral vascular accident) Surgical History History of hernia repair H/O section Family History Mother , age 73 of a stroke Stroke Father , age 50 of an CA Myocardial infarction Social History (Updated 04/07/23 @ 08:47 by Mark Mazariegos MD) Smoking Status: Never smoker Hx Alcohol Use: Yes Alcohol type: beer and wine Alcohol Intake Frequency: Monthly or Less Hx Substance Use: No Preferred Language: Cambodian Communication Ability: Effective Lamination Operator Required: No Beliefs That Will Affect Care: None Current Living Situation: Spouse 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 + Muprhy's sign. CVA tenderness negative. Extremities: Moves all extremities, no edema, tenderness to palpation of left thoracic musculoskeletal region. no tenderness over spine. Neuro: A&O x3 Skin: intact, no lesions noted Results & Data Results & Data Vital Signs (Past 12 Hours) Vital Signs Temp Pulse Pulse Resp BP BP Pulse Ox 07/06/25 14:13 93 H 07/06/25 14:08 97 07/06/25 13:58 98 H 18 118/74 97 07/06/25 13:42 36.8 C 111 H 20 110/70 99 O2 Del Method 07/06/25 14:13 07/06/25 14:08 Room Air 07/06/25 13:58 Room Air 07/06/25 13:42 Room Air Laboratory Results CBC, CMP, lipase, hCG, UA reviewed Diagnostic Findings Abdomen/Pelvis CT 07/06/25 14:[address] WITH IV CONTRAST CT DOSE: 1545.86 mGy.cm HISTORY: RUQ/flank pain, nausea TECHNIQUE: Multiaxial CT images of the abdomen and pelvis were performed following the IV administration of 90 cc of Optiray, A dose lowering technique was utilized adhering to the principles of ALARA. COMPARISON STUDY: 04/06/2023 FINDINGS: ABDOMEN: Liver, gallbladder, spleen, pancreas, and adrenal glands are unremarkable. Kidneys show no hydronephrosis or calculi. There are mild atherosclerotic calcifications. No abdominal aortic aneurysm. Pelvis: Uterus and adnexal regions are grossly unremarkable. Urinary bladder is nondistended. There is mild sigmoid diverticulosis. No acute diverticulitis. Normal appendix. No bowel inflammation or obstruction seen. No free fluid or free air. No enlarged adenopathy. Osseous structures: There is mild to moderate lumbar degenerative disc disease. No acute osseous findings. IMPRESSION: No acute findings. ACT 112: Negative or not required by law. The above report was generated using voice recognition software. It may contain grammatical, syntax or spelling errors. Electronically signed by: John Hayes M.D. 07/06/2025 3:38 PM Code Status & VTE Plan Code Status Full code VTE Prophylaxis Plan VTE Prophylaxis will be ordered: Yes Supervising Physician Co-Signing Physician Notes PA Supervision Note: I personally saw and examined the patient. I verified all ervin points and agree with MAJOR Bray with the following exceptions and/or additions: S-this patient is a 54-year-old female with a history of CVA, HTN, obesity, HLD, chronic lower back pain, hypothyroidism, here with severe right upper quadrant and epigastric abdominal pain with 2 episodes of black vomit in the last 3 days. She does have some bright red blood per rectum with wiping but only moves her bowels every 2 to 3 days and this is chronic. She has had many colonoscopies, the last 1 was about 5 years ago. She recently was started on Zepbound 2 weeks ago and also was started on HCTZ for her hypertension about 4 weeks ago. She was found to have an ROBY but hemoglobin was stable in the ED. History and ROS otherwise reviewed as above O- Vitals reviewed Gen: AAOx3, NAD, obese HEENT: Anicteric sclerae, EOMI CV: RRR no mgr nl S1S2 Pulm: CTAB no wcr Abd: +BS soft positive TTP in RUQ with positive Dela Cruz sign, positive TTP in epigastric region, both without guarding or rebound, ND no masses or hernias Ext: No edema Skin: No rashes, warm/dry Neuro: Full strength throughout CBC, BMP, LFTs, lipase, UA reviewed A/M-14-erxp-old female with history as above, here with nausea/vomiting, possible upper GI bleed, with ROBY. ROBY secondary to poor p.o. intake from starting Zepbound as well as in the setting of recent starting of HCTZ with chronic NSAID use and lisinopril. No evidence of pancreatitis or gallbladder issue on CT abdomen/pelvis, no bowel obstruction or diverticulitis appendicitis - Give IV fluids, follow BMP - Hold nephrotoxic medications - Check right upper quadrant ultrasound GI bleed-with nausea/vomiting, could be gastritis from vomiting with Zepbound- start PPI, clear liquids and advance diet as tolerated. Antiemetics as needed Follow CBC - Hold home aspirin and all NSAIDs PG Care Time/CCT Total # of Minutes Spent Total Time Spent with Patient: Total time spent is greater than 50% in coordination of care (as documented) at patient's floor/unit and/or counseling patient: Coding Level of Care Code 23780 INT INP/OBS CARE 3/75MIN Diagnoses ROBY (acute kidney injury) N17.9 RUQ abdominal pain R10.11 BRBPR (bright red blood per rectum) K62.5 Nausea R11.0"
[2025-07-06] MEDS: PANTOprazole 40 MG/10 ML SYR IV SCH (17:59)
[2025-07-06] MEDS: LACTATED RINGER'S 1,000 ML IV SCH (20:25)
[2025-07-06] MEDS: POLYETHYLENE (MIRALAX) 17 GM PACK PO SCH (20:40)
[2025-07-06] MEDS: ATORVASTATIN 40 MG TAB PO SCH (20:40)
[2025-07-06] MEDS: PREGABALIN 50 MG CAP PO SCH (20:40)
[2025-07-06 21:39] VITALS: RESP 18
[2025-07-06] MEDS: ACETAMINOPHEN 325 MG TAB PO PRN (22:47)
--- NOTE | 2025-07-07 01:28 | Ultrasound Report ---
Exam(s): US GALLBLADDER EXAM: US Abdomen Limited, Gallbladder CLINICAL HISTORY: Right upper quadrant Pain. TECHNIQUE: Real-time ultrasound of the right upper quadrant with image documentation. COMPARISON: CT abdomen and pelvis earlier today FINDINGS: Liver: The liver measures 13.8 cm. Fatty infiltration of the liver. No visualized mass. Gallbladder: Unremarkable. No gallstones. Common bile duct: The common bile duct is normal measuring 0.5 cm. No stones. No dilation. Pancreas: The pancreatic head and body are within normal limits. The tail is not visualized due to overlying bowel gas. Right kidney: Increased echogenicity of the renal cortex. The right kidney measures 9.8 cm. No hydronephrosis, mass or visualized nephrolithiasis. IMPRESSION: 1. Fatty infiltration of the liver. 2. Increased echogenicity of the right renal cortex is most consistent with chronic medical renal disease. No hydronephrosis. Electronically signed by: Miroslava Constantino MD 07/07/25 01:27 AM
[2025-07-07] MEDS: LEVOTHYROXINE SODIUM 50 MCG TABLET PO SCH (05:54)
[2025-07-07 06:39] LABS: Anion Gap 7.0 (3-11); Blood Urea Nitrogen 31.0 mg/dl (6-23); Calcium 8.1 mg/dl (8.6-10.3); Carbon Dioxide 22.0 mmol/L (21-32); Chloride 112.0 mmol/L (98-107); Creatinine Clr Calc Pharmacy 33.1 ml/min; Glucose 84.0 mg/dl (70-99(Fasting)); Magnesium 2.2 mg/dl (1.7-2.4); Potassium 4.5 mmol/L (3.5-5.1); Sodium 141.0 mmol/L (136-145)
[2025-07-07 06:55] LABS: Thyroid Stimulating Hormone 0.926 uIu/ml (0.300-4.500)
[2025-07-07 07:01] LABS: Hematocrit (blood only) 27.2 % (37.0-47.0); Hemoglobin 9.1 g/dL (12.0-16.0); Mean Corpuscular Hemoglobin 30.5 pg (25.0-34.0); Mean Corpuscular Volume 91.3 fL (80.0-100.0); Platelet Count 253 K/uL (130-400); RDW Standard Deviation 46.1 fL (36.4-46.3); Red Blood Count 2.98 M/uL (4.20-5.40); White Blood Count 4.62 K/ul (4.8-10.8)
[2025-07-07 07:29] VITALS: O2SAT 97
[2025-07-07 14:17] LABS: Anion Gap 4.0 (3-11); Blood Urea Nitrogen 27.0 mg/dl (6-23); Calcium 8.4 mg/dl (8.6-10.3); Carbon Dioxide 26.0 mmol/L (21-32); Chloride 109.0 mmol/L (98-107); Creatinine Clr Calc Pharmacy 42.3 ml/min; Glucose 122.0 mg/dl (70-99(Fasting)); Potassium 4.2 mmol/L (3.5-5.1); Sodium 139.0 mmol/L (136-145)
[2025-07-07 14:59] VITALS: BP 110/72; PULSE 87; TEMP 98.4
--- NOTE | 2025-07-07 15:00 | Discharge Summary ---
"Discharge Summary Date of Service July 07, 2025 Principal Dx & Hospital Course #1 = Principal Diagnosis (1) ROBY (acute kidney injury): (2) RUQ abdominal pain: (3) BRBPR (bright red blood per rectum): (4) Nausea: Plan This is a 54 year old female with PMHx of myalgias, HTN, HLD, hypothyroidism, CVA, chronic lower back pain, anxiety, and obesity who presented to the ED on 07/06/2025 for abdominal pain, nausea/vomiting with black vomit. #ROBY per pt, baseline creatinine is WNL. w/ ~2 weeks of decrease PO intake secondary to starting Zepbound. Recently started Mobic & HCTZ, on Lisinopril for HTN Creatinine 2.69/BUN 42 on admission, likely combo of new medications + poor PO intake driving ROBY Hold Lisinopril, Mobic, & HCTZ on discharge. s/p IVF w/ improvement of creatinine to 1.62 prior to dc. Discussed to maintain adequate PO intake on discharge. #Abdominal pain | Nausea | BRBPR w/ ongoing RUQ abdominal pain, nausea, occasional vomiting, and occasional BRBPR w/ wiping on toilet paper - symptoms worsened since beginning GLP-1 CTAP neg, no leukocytosis on CBC, LFTs WNL; RUQ US negative. suspect underlying constipation, only moves her bowels q2-3 days.-> continue a bowel regimen on discharge. BRBPR is only occasional, consider outpatient CN closer to her home town. Did have improvement of pain following initiation of PPI, continue PPI BID on discharge until seen by PCP. #HTN/history of CVA Home meds include HCTZ & Lisinopril - continue to hold until seen by PCP BP appears stable, patient does not feel comfortable going home on no anti- hypertensives --> Start Amlodipine 5mg daily upon discharge. Would avoid diuretics in future given poor PO intake while on Zepbound. #HLD - statin #Hypothyroidism - Synthroid #Mental health - Duloxetine, Alprazolam prn, Trazodone prn #Neuropathy/chronic lower back pain- Lyrica. Patient discharged home 07/07 Admission HPI Per Admitting Provider This is a 54 year old female with PMHx of myalgias, HTN, HLD, hypothyroidism, CVA, chronic lower back pain, anxiety, and obesity who presented to the ED on 07/06/2025 for abdominal pain. Jane was seen & examined with her at bedside this evening. She reports that she started Zepbound ~ 2 weeks ago. She was having vague symptoms previously but they have since been exacerbated since starting Zepbound. She reports that she is only moving her bowels every 2-3 days. She occasionally has BRBPR on the toilet paper w/ wiping. She reports she had a small BM at 2am. Reports her RUQ abdominal pain is intermittent and when it does occur, it is sev ere in nature with radiation to her back. She reports she has a hx of back pain & has had spinal injections for back pain as well. She reports feeling nauseous and vomited black liquid twice in the last 3 days. She denies any CP or SOB. Denies any urinary issues. She does report that since starting Zepbound she has had minimal appetite and has not been eating/drinking much at home. She was also recently started on HCTZ for her hypertension. While in the ED, she was found to have a negative CTAP. Her CBC was without leukocytosis. BMP was significant for a creatinine of 2.69/BUN 42. Her UA was negative for infection. She was given 2L of IVF, Zofran, Tylenol, and Morphine in the ED. She did report improvement of pain after morphine. Code discussion did take place and she does confirm that she is a full code. Discharge Exam General: NAD, VS: BP 110/72; P87; R18; T36.9C Resp: normal respiratory effort, lungs clear to auscultation CV: RRR, no murmur Abd: normal bowel sounds, non tender Extremities: Moves all extremities, no edema Neuro: A&O x3, Skin: intact, no lesions noted Discharge Plan Discharge Items Patient Disposition: Home - Self-Care Reason For Visit: ABDOMINAL PAIN Discharge Diagnosis: ROBY, abdominal pain Condition on Discharge: Good Activity: Resume your previous activity Non-emergency contact: Primary Care Provider Call non-emergency contact if: you have any medication questions and your symptoms worsen Follow-up/Referrals: NERY BOWEN [Other] Diet: Regular Addtl Attending Provider Instructions: Mrs. Escalante, You were recently hospitalized secondary to abdominal pain. You were found to have an acute kidney injury secondary to dehydration and medications that you were on. You were started on a medication for your stomach called pantoprazole and you have noticed an improvement of symptoms. You also have underlying constipation which can be treated with over the counter laxatives. Medications: Your medication list has been reviewed and reconciled upon discharge to ensure accuracy and continuity of care. An updated list of all your medications is included with your hospital discharge paperwork. Please review this list closely, and make note of any changes. Please do not take your Lisinopril or hydrochlorothiazide until seen by your PCP. Amlodipine has been sent into your pharmacy to manage your blood pressure. This is taken once daily starting tomorrow, 07/08. Please do not use any NSAIDs which includes Meloxicam and Ibuprofen. This is likely irritating your gastric lining causing you to have abdominal pain. Pantoprazole 40mg twice daily has been sent to your pharmacy. Your next dose is this evening, 07/07 Please hold your Zepbound dose until seen by your PCP. Take your medications as instructed; do not skip a dose of your medicines. Make sure all of your doctors know every medicine you are taking (including ytiz-igo-tqyhllc medicines, vitamins, and supplements). Call your primary care provider before taking any new medicines (including over- the-counter medicines, vitamins, and supplements), because some of these may interact with your current medications, or may make your symptoms worse. Tell your primary care provider if you cannot afford your medications. Activity: You can do normal everyday activities as your body allows. Take rest breaks if you feel tired. Do not overexert. Stop activity if you have pain, shortness of breath or feel dizzy. Follow-up appointments: Make an appointment with your primary care physician within one week of discharge. A copy of this summary will be sent to them. Every time you see your primary care physician, or any other doctor, bring your medication list, and a list of questions. CONTACT YOUR PRIMARY CARE PROVIDER if you experience any of the following: Shortness of breath or difficulty breathing Fevers or chills Feeling tired with normal activity or experiencing dizziness or fainting Difficulty following your treatment plan, or difficulty taking medications CALL 911 OR GO TO THE EMERGENCY DEPARTMENT if you experience any of the following: Severe abdominal pain or nausea/vomiting Severe chest pain, or chest pain that radiates (moves) to your jaw or arm Sudden, severe shortness of breath or difficulty breathing Thank you for allowing us to participate in your care. Pending Studies at Discharge: No Stand-Alone Forms: My [facility], Smoking Cessation Medications and DC Order Prescriptions: New amlodipine 5 mg tablet 5 mg PO DAILY Qty: 30 0RF pantoprazole 40 mg tablet,delayed release (DR/EC) 40 mg PO BID Qty: 60 0RF Continued acetaminophen [Tylenol Extra Strength] 500 mg Tablet 1,000 mg PO DIRECTED PRN (Reason: Pain) alprazolam 0.5 mg tablet 0.5 mg PO DAILY PRN (Reason: Anxiety) levothyroxine 50 mcg tablet 50 mcg PO DAILY nitroglycerin 0.4 mg tablet, sublingual 0.4 mg sublingual DIRECTED PRN (Reason: Increased Heart Rate) aspirin 81 mg tablet,delayed release (DR/EC) 0 mg PO QAM Rx Instructions: 81 MG QAM BUT ON HOLD FOR PROCEDURE 07/06/25 Held lisinopril 40 mg tablet 40 mg PO HS Hold Instructions: Resume on 08/10/25. until seen by PCP Zepbound 2.5 mg/0.5 mL pen injector 2.5 mg SUBCUT WK Hold Instructions: Resume on 07/14/25. until seen by PCP Rx Instructions: MONDAYS Discontinued ibuprofen 200 mg Tablet 800 mg PO DIRECTED PRN (Reason: Pain) meloxicam 15 mg tablet 0 mg PO DAILY Rx Instructions: 15 MG PO DAILY ON HOLD 07/06/25 hydrochlorothiazide 25 mg tablet 25 mg PO DAILY Discharge Orders: Discharge Order (Routine); Ordered 07/07/25 Ordered By: Radha Bray Admission Data Admit Date/Time: 07/06/25 18:04 Attending Provider: aPul Reyes Admit Provider: Brea Carolina Primary Care Provider: NERY BOWEN Other Providers: Brea Carolina Other Interventions: Discharge Summary Assessment (RN) Last Done: 07/07/25 14:29 Hospital Stay Data Consultations 07/06/25 16:55 ED Decision to Admit Stat Diagnostic Imagining Performed 07/06/25 14:04 CT abd pelvis IV con only Stat 07/06/25 17:14 US gallbladder Urgent Pending Results Patient Have Any Pending Studies at Discharge: No Discharge Instructions Given to Patient (Per Discharging Provider) Mrs. Escalante, You were recently hospitalized secondary to abdominal pain. You were found to have an acute kidney injury secondary to dehydration and medications that you were on. You were started on a medication for your stomach called pantoprazole and you have noticed an improvement of symptoms. You also have underlying constipation which can be treated with over the counter laxatives. Medications: Your medication list has been reviewed and reconciled upon discharge to ensure accuracy and continuity of care. An updated list of all your medications is included with your hospital discharge paperwork. Please review this list closely, and make note of any changes. Please do not take your Lisinopril or hydrochlorothiazide until seen by your PCP. Amlodipine has been sent into your pharmacy to manage your blood pressure. This is taken once daily starting tomorrow, 07/08. Please do not use any NSAIDs which includes Meloxicam and Ibuprofen. This is likely irritating your gastric lining causing you to have abdominal pain. Pantoprazole 40mg twice daily has been sent to your pharmacy. Your next dose is this evening, 07/07 Please hold your Zepbound dose until seen by your PCP. Take your medications as instructed; do not skip a dose of your medicines. Make sure all of your doctors know every medicine you are taking (including azdx-bgu-ttjxukg medicines, vitamins, and supplements). Call your primary care provider before taking any new medicines (including over- the-counter medicines, vitamins, and supplements), because some of these may interact with your current medications, or may make your symptoms worse. Tell your primary care provider if you cannot afford your medications. Activity: You can do normal everyday activities as your body allows. Take rest breaks if you feel tired. Do not overexert. Stop activity if you have pain, el[place] rtness of breath or feel dizzy. Follow-up appointments: Make an appointment with your primary care physician within one week of discharge. A copy of this summary will be sent to them. Every time you see your primary care physician, or any other doctor, bring your medication list, and a list of questions. CONTACT YOUR PRIMARY CARE PROVIDER if you experience any of the following: Shortness of breath or difficulty breathing Fevers or chills Feeling tired with normal activity or experiencing dizziness or fainting Difficulty following your treatment plan, or difficulty taking medications CALL 911 OR GO TO THE EMERGENCY DEPARTMENT if you experience any of the following: Severe abdominal pain or nausea/vomiting Severe chest pain, or chest pain that radiates (moves) to your jaw or arm Sudden, severe shortness of breath or difficulty breathing Thank you for allowing us to participate in your care. Supervising Physician Co-Signing Physician Notes The patient was not seen by me. The chart was reviewed. Case discussed with MAJOR Butt. Agree with assessment and plan Total Time Total Time Spent Total Time Spent (In Minutes): 45 Total Time Includes: Examination of the Patient, Discharge Planning and Medication Reconciliation Coding Level of Care Code 99793 INP/OBS DISCH >30 MIN Diagnoses ROBY (acute kidney injury) N17.9 RUQ abdominal pain R10.11 BRBPR (bright red blood per rectum) K62.5 Nausea R11.0"
== END 2025-07-07 15:43 | disposition home or self-care (01) | DRG 683 ==
LOC: SUATTDRO → ED 13:38 → SUATTDRO 18:04 → 3N 18:04 → INTOOBSV 18:04 → 3N 19:28